=== PATIENT | female | born 1940 | race Caucasian/White ===

== ENCOUNTER 2019-06-05 15:42 | Observation (INO) | payer MEDICARE, SELFPAY ==
[2019-06-05] VITALS (10 sets, daily range): BP systolic 120–143; BP diastolic 51–84; PULSE 76–101; RESP 24–38; TEMP 36.3–36.8; O2SAT 93–100; BMI 24.5
--- NOTE | ~2019-06-05 | XR_ITS ---
XR chest 1V portable 06/05/2019 16:08 Indication: Shortness of breath. COPD. Procedure: AP portable chest Comparison: Comparison to multiple prior studies sequentially, with oldest reviewed study dated 01/25. Findings: Cardiomegaly. There is emphysema. No focal air space disease, pulmonary edema, pleural effu bright or suspected pneumothorax. There are degenerative changes of the shoulders. No acute osseous abn ormality. Impression: 1: No acute cardiopulmonary disease. Reviewed, dictated and finalized at location A. Impression: 1: No acute cardiopulmonary disease.
--- NOTE | 2019-06-05 15:57 | ECG_ITS ---
Measurements Intervals [place] Rate: 80 P: 72 TX: 138 QRS: 97 QRSD: 85 T: 65 QT: 357 QTc: 413 Interpretive Statements SINUS RHYTHM VENTRICULAR PREMATURE COMPLEXES POSSIBLE LEFT ATRIAL ENLARGEMENT BASELINE ARTIFACT- II, III, AVL, AVF, V3-V6 BORDERLINE ECG Electronically Signed On 06-06-2019 8:21:20 CDT by Benson Diaz D.O.
[2019-06-05 16:17] LABS: Basophils Absolute Auto 0.02 K/mm3 (0.00-0.10); Basophils Percent Auto 0.3 % (0.0-1.0); Eosinophils Absolute Auto 0.12 K/mm3 (0.02-0.50); Eosinophils Percent Auto 1.6 % (1.0-6.0); Hematocrit 31.4 % (35.0-42.0); Hemoglobin 9.6 g/dL (11.7-13.8); Immature Granulocyte Absolute 0.02 K/mm3 (0.00-0.00); Immature Granulocyte Percent A 0.3 % (0.0-0.0); Lymphocytes Absolute Auto 0.85 K/mm3 (1.10-4.50); Lymphocytes Percent Auto 11.3 % (18.0-42.0); Mean Corpuscular HGB Conc 30.6 g/dL (32.0-36.0); Mean Corpuscular Hemoglobin 28.7 pg (27.0-31.0); Mean Corpuscular Volume 93.7 fL (78.0-102.0); Mean Platelet Volume 10.2 fl (9.2-11.8); Monocytes Absolute Auto 0.66 K/mm3 (0.10-0.90); Monocytes Percent Auto 8.8 % (2.0-11.0); Neutrophils Absolute Auto 5.8 K/mm3 (1.7-7.2); Neutrophils Percent Auto 77.7 % (50.0-70.0); Platelet Count Result 208 K/mm3 (150-420); Red Blood Count 3.35 M/mm3 (4.20-5.40); Red Cell Distribution Width 14.7 % (11.6-14.4); White Blood Count 7.5 K/mm3 (4.8-10.8)
[2019-06-05 16:29] LABS: Anion Gap 6.2 mmol/L (7-16); Blood Urea Nitrogen 16 mg/dL (7-18); Calcium 9.1 mg/dL (8.5-10.1); Carbon Dioxide 36 mmol/L (21-32); Chloride 102 mmol/L (98-108); Estimated Glomerular Filt Rate > 60; Glucose 101 mg/dL (70-99); Osmolality Calculated 291 mOsm/kg (285-295); Potassium 4.2 mmol/L (3.5-5.1); Sodium 140 mmol/L (136-145)
[2019-06-05 16:38] LABS: Influenza Control Valid (Valid)
[2019-06-05] MEDS: predniSONE 20 MG TABLET 60 MG PO (17:19)
[2019-06-05] MEDS: IPRATROPIUM 0.5 MG/ALBUTEROL SULFATE 2.5 MG AMPUL.NEB 3 ML INHALATION ×2 (17:21→19:30)
[2019-06-05 19:34] LABS: Base Excess ABG 5.8 mmol/L (0-2); HCO3 ABG 31.9 mmol/L (23-29); Oxygen Content ABG 14.9 %vol (16.0-22.0); Oxygen Saturation ABG 99.4 % (95-97); Oxyhemoglobin 95.8 % (94-100); PCO2 ABG 53.9 mmHg (35-45); PO2 ABG 202.9 mmHg (75-85); Total Hemoglobin 10.7 g/dL; pH ABG 7.39 (7.35-7.45)
[2019-06-05 19:36] LABS: Device NASAL CANNULA; Modified Allen's Test Pass; Site Drawn LEFT BRACHIAL
--- NOTE | 2019-06-05 19:43 | ED.SOB ---
HPI - SOB/Dyspnea General Chief Complaint: Shortness of Breath/Dyspnea Stated Complaint: sent from doctors/low oxygen Source: other (Dr. Genao) Mode of arrival: wheelchair Limitations: no limitations History of Present Illness HPI Narrative: Dr. Genao phoned from his office, signing off patient who arrived in his office this afternoon with SOB, tachypnea and hypoxemia. Pt states 4 days ago she developed rhinorrhea and worsening of her dyspnea (especially with exertion) which has been progressively worsening. She has more intense coughing but it remains unproductive. She's had nausea since yesterday. There is some lower extremity swelling which is static. No recent fever or chills. She is on 3 liters of 02 continuously at home. There is a long hose allowing her to go everywhere in her house with 02. Discharged from [facility] 03/29/2019 with uncompensated CHF* and exacerbation of COPD. She continues to smoke several cigarettes/day. * (ECHo on 02/01/2019 showed LV diastolic fxn grade 1 diastolic dysfxn, moderate mitral calcification, moderate to severe pulmonary HTN with PA pressure 60 mmHG) Exacerbating factors: exertion Relieving factors: oxygen, rest and bronchodilators Related Data Allergies Allergy/AdvReac Type Severity Reaction Status Date / Time No Known Allergies Allergy Verified 06/05/19 11:06 Review of Systems Constitutional: Constitutional: Reports fatigue Eyes: Eyes: Reports no additional eye complaints ENT: Reports system reviewed and no additional complaints, except as documented Cardiovascular: Cardiovascular: Denies chest pain Respiratory: Respiratory: Reports no additional respiratory complaints Gastrointestinal: Gastrointestinal: Reports no additional gastrointestinal complaints Genitourinary: Genitourinary: Denies dysuria Musculoskeletal: Musculoskeletal: Reports no additional musculoskeletal complaints Integumentary/Breasts: Skin/Breast: Reports system reviewed and no additional complaints, except as docu Neurologic: Denies focal weakness Comments: lightheadedness for several months Psychiatric: Comments: Endocrine: Endocrine: Reports fatigue Hematologic/Lymphatic: Hematologic/Lymphatic: Reports no additional hematologic/lymphatic complaints Allergic/Immunologic: Allergic/Immunologic: Denies throat swelling PMFSH Past Medical History Medical History Abdominal pain in female patient (~02/28/19) Aortic stenosis Cardiomegaly Chronic GERD Community acquired pneumonia COPD (chronic obstructive pulmonary disease) Dilatation of pulmonic artery Elevated troponin HTN (hypertension) Left groin pain (~02/28/19) Medical non-compliance Moderate to severe pulmonary hypertension (~2018) Nicotine dependence Requires supplemental oxygen Shortness of breath Smoker Spondylosis of thoracolumbar spine TMJ (temporomandibular joint disorder) Trichomonal infection (~2018) Urogenital infection by trichomonas vaginalis (~02/08/19) Surgical History Surgical History H/O tubal ligation History of appendectomy History of tonsillectomy Hx of cholecystectomy Social History Social History Social History: Signed a DNR. Does not want advanced interventions done. Lives at home alone. No family support or assistance. Landlord helps her with rides. No cigarettes for over a week. Smoking packs per day: 0.5 Smoking cigarettes per day: 10.0 Years smoked: 55 Smoking pack-years: 27.50 Smoking status: Current every day smoker Tobacco type: cigarettes Second hand tobacco smoke exposure: Yes Alcohol intake: never Substance use: never Substance use type: does not use Gender identity (if verbalized by the patient): Female Spiritual care concerns: No Agree to blood products: Yes Exam Const: General: No confusion Nutri
[2019-06-05 19:54] LABS: Lactic Acid 1.3 mmol/L (0.4-2.0)
[2019-06-05 20:29] LABS: BNP 87.1 pg/mL (0-100)
[2019-06-05] MEDS: SALMET XINAFT/FLUTIC PROPIN 250 MCG/50 MCG INH CAP 1 PUFF INHALATION (21:14)
[2019-06-05] MEDS: SODIUM CHLORIDE 0.9% IV 1,000 ML 120 ML IV CONT (21:15)
--- NOTE | 2019-06-05 21:54 | ADMGEN ---
This patient, Paulette Mora, was admitted to 2nd Floor Room 209-1. Patient/family oriented to hospital policies and general routines including ID bracelet, bed and alarms, visiting hours, pain management, procedures, bathroom and other care routines, personal items, smoking policy, room service/diet, and visiting hours. Valuables list has been completed. Information on how to activate the Rapid Response Team has been discussed. Patient/Family are encouraged to report perceived risks to care and to ask questions if they do not understand what they are told or what they should do.
--- NOTE | 2019-06-05 21:58 | PC.NURSE ---
pt reminded not to get up without assist since she is on 02 and getting cont. fluids, commode placed near bedside, pt is sob upon repositioning herself in bed, 02 at home setting of 3L
--- NOTE | 2019-06-05 22:36 | PC.NURSE ---
pt makes multiple complaints that she can't breathe because there is no oxygen coming out of her tubing, tubing checked and is operational, 02 levels checked and pt is at 93%, offered breathing treatment which pt refuses, offered to have dr allan come speak with her, pt refuses this also and states i hope i here ,
[2019-06-06 00:12] VITALS: BP 114/68; PULSE 77; RESP 22; TEMP 37; O2SAT 96
[2019-06-06] MEDS: IPRATROPIUM 0.5 MG/ALBUTEROL SULFATE 2.5 MG AMPUL.NEB 3 ML INHALATION ×2 (02:25→05:35)
[2019-06-06 04:17] VITALS: BP 140/68; PULSE 78; RESP 22; TEMP 36.7; O2SAT 93
[2019-06-06 05:37] VITALS: PULSE 84; RESP 20
[2019-06-06 05:47] VITALS: PULSE 88; RESP 20
[2019-06-06] MEDS: LEVOTHYROXINE SODIUM 25 MCG TABLET PO (05:54)
[2019-06-06] MEDS: SODIUM CHLORIDE 0.9% IV 1,000 ML 120 ML IV CONT (05:54)
[2019-06-06] MEDS: methylPREDNISolone SOD SUCC 125 MG VIAL 60 MG IV PUSH (05:54)
[2019-06-06 08:00] VITALS: BP 145/66; PULSE 86; RESP 22; TEMP 36.8; O2SAT 95
[2019-06-06] MEDS: ENOXAPARIN 40 MG/0.4 ML SYRINGE SUB-Q (09:22)
[2019-06-06] MEDS: POTASSIUM CHLORIDE 10 MEQ TABLET 20 MEQ PO (09:23)
[2019-06-06] MEDS: FUROSEMIDE 40 MG TABLET PO (09:23)
[2019-06-06] MEDS: SALMET XINAFT/FLUTIC PROPIN 250 MCG/50 MCG INH CAP 1 PUFF INHALATION (09:23)
[2019-06-06] MEDS: PANTOPRAZOLE 40 MG TABLET PO (09:23)
[2019-06-06 10:03] LABS: Hematocrit 32.3 % (35.0-42.0); Mean Corpuscular Hemoglobin 28.7 pg (27.0-31.0); Mean Corpuscular Volume 92.6 fL (78.0-102.0); Mean Platelet Volume 10.1 fl (9.2-11.8); Platelet Count Result 217 K/mm3 (150-420); Red Blood Count 3.49 M/mm3 (4.20-5.40); White Blood Count 5.8 K/mm3 (4.8-10.8)
[2019-06-06 10:12] LABS: Anion Gap 10.9 mmol/L (7-16); Blood Urea Nitrogen 11 mg/dL (7-18); Calcium 8.9 mg/dL (8.5-10.1); Carbon Dioxide 30 mmol/L (21-32); Chloride 101 mmol/L (98-108); Estimated CRCL calculation 38 ml/min; Estimated Glomerular Filt Rate > 60; Glucose 234 mg/dL (70-99); Osmolality Calculated 293 mOsm/kg (285-295); Potassium 3.9 mmol/L (3.5-5.1); Sodium 138 mmol/L (136-145)
--- NOTE | 2019-06-06 14:14 | PM.SD ---
Same Day Admit/Disch: HPI History of Present Illness Chief complaint: sent from doctors/low oxygen Narrative: Paulette Mora is a 79 year old female that was sent from her doctor's offfice , Dr. Fair, to our ED yesterday. According the patient for the last couple days she had experienced shortness of breath that worsened on exertion. She arrived to her doctor's office with shortness of breath, tachypnea and hypoxia. She was admitted into this hospital, from her doctor's office for COPD exacerbation. She has a past medical history aortic stenosis, cardiomegaly, chronic GERD, CAP, COPD, elevated troponin, hypertension, nicotine dependent, requires supplemental oxygen, shortness of breath, smoker, and COPD. according to the patient for the last 4 days she had experienced short of breath that increased with exertion . she was attempting to smoke her cigarettes and had to put it out and relight it 4 times. According to patient she occasionally experience these episodes due to her COPD. Vital signs 145/66, 36.8%, 86, 22, 95% on 2 L nasal cannula. while patient was in the ED she was given breathing treatments with Levaquin and Solu-Medrol her chest x-ray was unremarkable her EKG was sinus rhythm blood cultures are pending. Patient is anxious to discharge home today. I have encountered this patient in the past she appears to be at baseline. Patient was educated on smoking sensation. According to patient she is old and she is going to from something. She will not stop smoking. Warned her of the dangers of smoking with oxygen, patient understood. She will discharge today with Levaquin, prednisone, and anti-Decongestion. patient will follow-up with PCP. Patient able to tolerate all meals , slept well and ambulate at baseline. Patient denies CP, palpitation, extremity numbness, lightheadness, dizziness, constipation, diarrhea, or chills or fever. Patient agree that they are ready for discharge and discharge plan. [facility] Past Medical History Medical History Abdominal pain in female patient (~02/28/19) Aortic stenosis Cardiomegaly Chronic GERD Community acquired pneumonia COPD (chronic obstructive pulmonary disease) Dilatation of pulmonic artery Elevated troponin HTN (hypertension) Left groin pain (~02/28/19) Medical non-compliance Moderate to severe pulmonary hypertension (~2018) Nicotine dependence Requires supplemental oxygen Shortness of breath Smoker Spondylosis of thoracolumbar spine TMJ (temporomandibular joint disorder) Trichomonal infection (~2018) Urogenital infection by trichomonas vaginalis (~02/08/19) Surgical History Surgical History H/O tubal ligation History of appendectomy History of tonsillectomy Hx of cholecystectomy Social History Social History Social History: Signed a DNR. Does not want advanced interventions done. Lives at home alone. No family support or assistance. Landlord helps her with rides. No cigarettes for over a week. Smoking packs per day: 0.5 Smoking cigarettes per day: 10.0 Years smoked: 55 Smoking pack-years: 27.50 Smoking status: Current every day smoker Tobacco type: cigarettes Second hand tobacco smoke exposure: Yes Alcohol intake: never Substance use: never Substance use type: does not use Gender identity (if verbalized by the patient): Female Spiritual care concerns: No Agree to blood products: Yes Same Day Admit/Disch: Med Pre-admit Medications Home Medications Medication Instructions Recorded Confirmed Type acetaminophen 1,000 mg PO Q6H PRN #30 cap 03/03/19 06/05/19 Rx fluticasone 250 mcg-salmeterol 50 1 inh INHALATION Q12H #60 each 03/29/19 06/05/19 Rx mcg/dose blistr powdr for inhalation ibuprofen 400 mg PO Q6H PRN #60 tablet 03/29/19 06/05/19 Rx ipratropium 0.5 mg-albu
== END 2019-06-06 12:45 | disposition home or self-care (01) ==
LOC: CHSED 15:44 → CHS2ND 20:07
PROVIDERS: Nurse Practitioner; Admitting Provider Family Medicine; Emergency Provider Family Medicine; PCP Family Medicine; Visit Provider Family Medicine
DX: J44.1 Chronic obstructive pulmonary disease with (acute) exacerbation (principal); I50.9 Heart failure, unspecified; I35.0 Nonrheumatic aortic (valve) stenosis; K21.9 Gastro-esophageal reflux disease without esophagitis; I11.0 Hypertensive heart disease with heart failure; I27.20 Pulmonary hypertension, unspecified; M47.814 Spondylosis without myelopathy or radiculopathy, thoracic region; F17.200 Nicotine dependence, unspecified, uncomplicated; Z99.81 Dependence on supplemental oxygen
CPT/HCPCS: 36415; 36600; 71045; 80048; 82805; 83605; 83880; 85025; 85027; 87040; 87804; 93005; 94640; 96361; 96365; 96372; 96375; 99285; A9270; G0378; J1650; J1956; J2930; J7030; J7512

== ENCOUNTER 2019-07-06 04:49 | Observation (INO) | payer MEDICARE, SELFPAY ==
[2019-07-06] VITALS (14 sets, daily range): BP systolic 113–143; BP diastolic 53–88; PULSE 66–80; RESP 16–20; TEMP 36.6–37.4; O2SAT 93–100; BMI 21.5
--- NOTE | ~2019-07-06 | XR_ITS ---
EXAMINATION: XR chest 1V portable DATE: 07/06/2019 05:11 INDICATION: Shortness of breath. TECHNIQUE: A single frontal view of the chest was obtained. COMPARISON: Chest single view 06/05/2019, CT abdomen and pelvis 03/01/2019 FINDINGS: There are Monae B-lines, consistent with mild pulmonary edema. No pleural effusion or pneu mothorax. Cardiomegaly is noted. IMPRESSION: 1. Mild pulmonary edema. 2. Cardiomegaly. Reviewed, dictated and finalized at location A.
--- NOTE | 2019-07-06 04:52 | ECG_ITS ---
Measurements Intervals [place] Rate: 77 P: 78 [place]: 143 QRS: 87 QRSD: 85 T: 75 QT: 413 QTc: 468 Interpretive Statements SINUS RHYTHM VENTRICULAR BIGEMINY AND VENTRICULAR PREMATURE COMPLEX CANNOT RULE OUT SEPTAL INFARCT, AGE INDETERMINATE BASELINE ARTIFACT- V4-V6 ABNORMAL ECG Electronically Signed On 07-06-2019 7:55:18 CDT by Benson Diaz D.O.
--- NOTE | 2019-07-06 04:55 | ED.SOB ---
HPI - SOB/Dyspnea General Chief Complaint: Unspecified Stated Complaint: shortness of breath Time Seen by Provider: 07/06/19 04:55 Source: patient Mode of arrival: EMS Limitations: no limitations History of Present Illness HPI Narrative: 79-year-old woman history of COPD, pulmonary hypertension, smoking and recent admission for community-acquired pneumonia brought in today by EMS for progressively worse shortness of breath over the last 3 days. Patient states that she has had rhinorrhea since her last admission on 06/05/19 but denies any fever, body aches, headache, chest pain, lightheadedness or syncope, or sick exposures. Her most recent neb was just prior to EMS arrival. MD elicited complaint: shortness of breath Pertinent past history: COPD Onset (ago): day(s) (3) Context: recent illness Timing: constant and progressively worsening Severity: severe Exacerbating factors: lying flat and exertion Relieving factors: nothing Known history of: COPD Treatment prior to arrival: oxygen and bronchodilator Related Data Home oxygen amount: 3 liters Allergies Allergy/AdvReac Type Severity Reaction Status Date / Time No Known Allergies Allergy Verified 06/12/19 09:03 Review of Systems Constitutional: Constitutional: Denies chills, Denies fever(s) and Denies weakness Eyes: Eyes: Denies change in vision and Denies photophobia ENT: Denies dysphagia, Denies nasal congestion and Denies sore throat Cardiovascular: Cardiovascular: Denies chest pain and Denies radiating jaw, neck or arm pain Respiratory: Respiratory: Denies cough, Denies dyspnea and Denies wheezing Gastrointestinal: Gastrointestinal: Denies abdominal pain, Denies diarrhea, Denies nausea and Denies vomiting Genitourinary: Genitourinary: Denies nocturia and Denies dysuria Musculoskeletal: Musculoskeletal: Denies arthralgias and Denies joint swelling Integumentary/Breasts: Skin/Breast: Denies pruritus, Denies erythema and Denies rash Neurologic: Denies vertigo, Denies dizziness, Denies syncope, Denies headache(s) and Denies focal weakness Psychiatric: Psychiatric: Denies anxiety and Denies depression Endocrine: Endocrine: Denies polydipsia and Denies polyuria Hematologic/Lymphatic: Hematologic/Lymphatic: Denies easy bleeding and Denies easy bruising Allergic/Immunologic: Allergic/Immunologic: Denies lip swelling and Denies wheezing PMFSH Past Medical History Medical History Abdominal pain in female patient (~02/28/19) Aortic stenosis Cardiomegaly Chronic GERD Community acquired pneumonia COPD (chronic obstructive pulmonary disease) Dilatation of pulmonic artery Elevated troponin HTN (hypertension) Left groin pain (~02/28/19) Medical non-compliance Moderate to severe pulmonary hypertension (~2018) Nicotine dependence Requires supplemental oxygen Shortness of breath Smoker Spondylosis of thoracolumbar spine TMJ (temporomandibular joint disorder) Trichomonal infection (~2018) Urogenital infection by trichomonas vaginalis (~02/08/19) Surgical History Surgical History H/O tubal ligation History of appendectomy History of tonsillectomy Hx of cholecystectomy Social History Social History Social History: Signed a DNR. Does not want advanced interventions done. Lives at home alone. No family support or assistance. Landlord helps her with rides. No cigarettes for over a week. Smoking packs per day: 0.5 Smoking cigarettes per day: 10.0 Years smoked: 55 Smoking pack-years: 27.50 Smoking status: Current every day smoker Tobacco type: cigarettes Second hand tobacco smoke exposure: Yes Alcohol intake: never Substance use: never Substance use type: does not use Gender identity (if verbalized by the patient): Female Spiritual care concerns: No Agree to blood products
--- NOTE | 2019-07-06 05:05 | PC.NURSE ---
portable CXR done
[2019-07-06] MEDS: SODIUM CHLORIDE 0.9% 3 ML NEB FOR INHALATION (05:10)
[2019-07-06] MEDS: IPRATROPIUM 0.5 MG/ALBUTEROL SULFATE 2.5 MG AMPUL.NEB 3 ML INHALATION (05:10)
[2019-07-06 05:18] LABS: Basophils Absolute Auto 0.01 K/mm3 (0.00-0.10); Basophils Percent Auto 0.2 % (0.0-1.0); Eosinophils Percent Auto 3.9 % (1.0-6.0); Hematocrit 28.9 % (35.0-42.0); Hemoglobin 8.6 g/dL (11.7-13.8); Immature Granulocyte Absolute 0.01 K/mm3 (0.00-0.00); Immature Granulocyte Percent A 0.2 % (0.0-0.0); Lymphocytes Absolute Auto 1.06 K/mm3 (1.10-4.50); Lymphocytes Percent Auto 20.7 % (18.0-42.0); Mean Corpuscular HGB Conc 29.8 g/dL (32.0-36.0); Mean Corpuscular Hemoglobin 28.2 pg (27.0-31.0); Mean Corpuscular Volume 94.8 fL (78.0-102.0); Mean Platelet Volume 9.9 fl (9.2-11.8); Monocytes Absolute Auto 0.52 K/mm3 (0.10-0.90); Monocytes Percent Auto 10.2 % (2.0-11.0); Neutrophils Absolute Auto 3.3 K/mm3 (1.7-7.2); Neutrophils Percent Auto 64.8 % (50.0-70.0); Platelet Count Result 172 K/mm3 (150-420); Red Blood Count 3.05 M/mm3 (4.20-5.40); Red Cell Distribution Width 16.5 % (11.6-14.4); White Blood Count 5.1 K/mm3 (4.8-10.8)
[2019-07-06 05:21] LABS: Oxygen Content ABG 13.9 %vol (16.0-22.0); Oxygen Saturation ABG 99.7 % (95-97); Oxyhemoglobin 96.5 % (94-100); PO2 ABG 285.3 mmHg (75-85); Total Hemoglobin 9.7 g/dL; pH ABG 7.31 (7.35-7.45)
[2019-07-06 05:38] LABS: Alanine Aminotransferase 15 U/L (14-59); Albumin Level 3.3 g/dL (3.4-5.0); Alkaline Phosphatase 75 U/L (46-116); Anion Gap 7.4 mmol/L (7-16); Aspartate Amino Transferase 16 U/L (15-37); Bilirubin,Total 0.1 mg/dL (0.00-1.00); Blood Urea Nitrogen 19 mg/dL (7-18); Calcium 8.5 mg/dL (8.5-10.1); Carbon Dioxide 37 mmol/L (21-32); Chloride 103 mmol/L (98-108); Estimated CRCL calculation 61 ml/min; Estimated Glomerular Filt Rate > 60; Glucose 110 mg/dL (70-99); Osmolality Calculated 299 mOsm/kg (285-295); Potassium 4.4 mmol/L (3.5-5.1); Sodium 143 mmol/L (136-145); Total Protein 6.3 g/dL (6.4-8.2); Troponin I 0.03 ng/mL (0.00-0.056)
[2019-07-06 05:41] LABS: BNP 59.8 pg/mL (0-100)
[2019-07-06 05:58] LABS: D Dimer 0.44 mg/L (0.19-0.50); Prothrombin Time 9.9 Seconds (9.64-11.0)
[2019-07-06 05:59] LABS: Partial Thromboplastin Time 24.6 SEC (22.3-31.6)
[2019-07-06 06:01] LABS: Modified Allen's Test Pass; PCO2 ABG 73.3 mmHg (35-45); Site Drawn RIGHT BRACHIAL
[2019-07-06 06:02] LABS: Device ROOM AIR
[2019-07-06 07:02] LABS: Influenza Control Valid (Valid)
--- NOTE | 2019-07-06 07:39 | PC.NURSE ---
COVID 19 ordered, even though now s/s.
--- NOTE | 2019-07-06 08:02 | PCRCNOTE ---
Oxygen initated per High Flow Nasal Canula 40/40 @ 0620. Pt complained that the air was to hot so temp was turned down to 31 degrees Celsius. Pt SPO2 100%
[2019-07-06] MEDS: methylPREDNISolone SOD SUCC 40 MG VIAL IV PUSH ×2 (08:05→17:42)
--- NOTE | 2019-07-06 08:13 | PC.NURSE ---
patient refuses to use bedside commode, explained on isolation. Cont to refuse, states I am not an invilid.
--- NOTE | 2019-07-06 09:17 | PC.NURSE ---
Recent admit for pneumonia, doing ok till about 4 days ago and got more SOB progressively, to ER and received neb and steroids and feeling better, did have hi flow oxygen in place, for admit to floor changed back to home oxygen at 3L NC and now feeling better, refuses hi flow at this time, eating breakfast, oriented to room no pain noted, no edema noted, some SALCEDO noted, call ight in reach and side rails up for safety
--- NOTE | 2019-07-06 09:30 | PC.NURSE ---
Is back on home oxygen at 3L NC, denies need for more oxygen at this time, sitting on edge of bed,
[2019-07-06] MEDS: POTASSIUM CHLORIDE 10 MEQ TABLET 20 MEQ PO (10:00)
[2019-07-06] MEDS: FUROSEMIDE 40 MG TABLET PO (10:00)
[2019-07-06] MEDS: SALMET XINAFT/FLUTIC PROPIN 250 MCG/50 MCG INH CAP 1 PUFF INHALATION ×2 (10:00→19:28)
[2019-07-06] MEDS: PANTOPRAZOLE 40 MG TABLET PO (10:01)
[2019-07-06] MEDS: ENOXAPARIN 30 MG/0.3 ML SYRINGE SUB-Q (10:01)
[2019-07-06 10:17] LABS: Add Urine Microscopic? NO; Appearance Urine Clear (Clear); Bilirubin Urine Negative (Negative); Blood Urine Negative (Negative); Color Urine Yellow (Yellow); Glucose Urine UA Negative (Negative); Ketones Urine Negative (Negative); Leukocyte Esterase Ur Negative LEU/UL (Negative); Nitrate Urine Negative (Negative); Protein Urine Negative (Negative); Specific Grav Ur 1.025 (1.010-1.020); Urobilinogen Urine 0.2 mg/dL (0.2-1.0)
--- NOTE | 2019-07-06 10:30 | PC.NURSE ---
Sitting on edge of bed, denies needs, moreira noted but states feels better now than when admit to ER
[2019-07-06] MEDS: ALBUTEROL SULFATE (*SP) INHALER 4 PUFF INHALATION ×3 (11:15→19:32)
--- NOTE | 2019-07-06 11:28 | PM.IMHP ---
H&P: HPI History of Present Illness Chief complaint: shortness of breath Narrative: Paulette Mora is a 79 year old female that presented to the ED today with complaints of shortness of breath that started last night. she has a past medical history aortic stenosis, cardiomegaly, chronic GERD, community-acquired pneumonia, COPD, elevated troponins, dilation of pulmonary artery, hypertension, elevated troponin, left groin pain, abdominal pain in female patient, medical noncompliance, moderate to severe pulmonary hypertension, nicotine dependence, require supplementary oxygen, and smoker. Patient is a frequent Flyer she has been admitted twice this year on 04/08/2019 and 06/06/2019 for COPD exacerbation. She is being admitted today for COPD exacerbation. patient noted that last night she does develop shortness of breath and attempted to use her nebulizers and and inhaler with no improvement.while in the ER patient was given breathing treatments chest x-ray did indicate mild pulmonary edema, EKG normal sinus rhythm with PVCs. Her blood gases indicated chronic compensated primary respiratory acidosis. her white count was within normal limits, her influenza was negative her COVID-19 is pending. patient is currently on droplet isolation until results to COVID-19 are returned. vital signs 133/57, 72, 16, 36.7 and 98% on high-flow nasal cannula. high-flow has been removed from patient she is now on 3 L nasal cannula satting 99% she does not appear to be in any respiratory distress. patient admits that her condition has improved since she has had breathing treatments along with steroids . patient was not started on antibiotics until she she could produce a UA sample. she has urinated we will now start her on Rocephin. Patient able to tolerate all meals ,and ambulate at baseline. Patient denies SOB, CP, palpitation, extremity numbness, lightheadness, dizziness, constipation, diarrhea, chills or fever. Review of Systems Review of Systems: Narrative: Constitutional: Constitutional: Reports no additional constitutional complaints Cardiovascular: Cardiovascular: Reports no additional cardiovascular complaints, Denies rapid heart rate, Denies edema, Denies leg edema, Reports dyspnea on exertion (has iimproved) and Reports orthopnea Respiratory: Respiratory: Reports cough (Chronic) and Reports dyspnea ( improved) Gastrointestinal: Gastrointestinal: Reports no additional gastrointestinal complaints, Denies dyspepsia, Denies heartburn, Denies diarrhea, Denies nausea and Denies vomiting Genitourinary: Genitourinary: Reports no additional female genitourinary complaints, Denies dysuria and Denies flank pain Musculoskeletal: Musculoskeletal: Reports no additional musculoskeletal complaints Integumentary/Breasts: Skin/Breast: Reports system reviewed and no additional complaints, except as docu Neurologic: Reports system reviewed and no additional complaints, except as documented, Denies abnormal gait, Denies vertigo, Denies dizziness and Denies syncope Psychiatric: Psychiatric: Reports no additional psychiatric complaints, Denies confusion and Denies paranoia Endocrine: Endocrine: Reports no additional endocrine complaints and Denies fatigue PMFSH Past Medical History Medical History Abdominal pain in female patient (~02/28/19) Aortic stenosis Cardiomegaly Chronic GERD Community acquired pneumonia COPD (chronic obstructive pulmonary disease) Dilatation of pulmonic artery Elevated troponin HTN (hypertension) Left groin pain (~02/28/19) Medical non-compliance Moderate to severe pulmonary hypertension (~2018) Nicotine dependence Requires supplemental oxygen Shortness of breath Smoker Spondylosis of thoracolumbar spine TMJ (temporomandibular joint disorder) Trichomonal infection (~2018) Urogenital infection by trichomonas vaginalis (~02/08/19) Surgical History Surgical History (Reviewed
--- NOTE | 2019-07-06 11:30 | PC.NURSE ---
Resting on left side in bed, oxygen on at 3 L NC per home dose, no cough at this time
--- NOTE | 2019-07-06 12:29 | PC.NURSE ---
Ate well for lunch, no change in breathing assessment, only dyspnea on exertion, removes oxygen to get up to void then re applied per patient
[2019-07-06] MEDS: BENZONATATE 100 MG CAPSULE 200 MG PO ×2 (13:12→17:42)
--- NOTE | 2019-07-06 13:21 | PC.NURSE ---
Increased void due to lasix and making her more sob, states will refuse this med tomorrow
--- NOTE | 2019-07-06 14:08 | PC.NURSE ---
home oxygen on at 3L NC, no acute distress, occassional audible wheeze after activity, resolves after sitting, able to ambulate to bathroom to void
--- NOTE | 2019-07-06 15:00 | PC.NURSE ---
laying in bed, no distress at this time, no cough noted, tlelemtry SR, side rails up for safety and using call light appropriately, taking po fluids well
--- NOTE | 2019-07-06 16:00 | PC.NURSE ---
home dose of oxygen on at 3L NC
--- NOTE | 2019-07-06 17:00 | PC.NURSE ---
Home dose oxygen on at 3L NC
--- NOTE | 2019-07-06 18:11 | PC.NURSE ---
Sitting on edge of bed, denies needs, dyspnea when up, recovers after sitting , able to ambulate to bathroom and re applied oxygen when returned,
--- NOTE | 2019-07-06 19:05 | PC.NURSE ---
Patient lying in bed watching tv. Respirations even and unlabored on O2 @ 3 lpm/nc. Denies pain/complaints/needs @ this time. No distress noted. Call light in reach.
--- NOTE | 2019-07-06 20:45 | PC.NURSE ---
Patient took HS meds without difficulty. Respirations even and unlabored on O2 @ 3 lpm/nc. Patient reports getting SOB when she walks to the bathroom. Offered to assist patient with portable O2 tank when going to the bathroom and she declined, saying it's fine how she's doing it, which is taking O2 off when ambulating to/from bathroom. Patient denies any other pain/complaints/needs @ this time. No distress noted. Call light in reach.
--- NOTE | 2019-07-06 21:30 | PC.NURSE ---
Patient appears to be sleeping by the rise and fall of her chest. Respirations even and unlabored on O2 @ 3 lpm/nc. No distress noted. Call light in reach.
[2019-07-07] VITALS: BP 137/51; PULSE 72; RESP 18; TEMP 37.1; O2SAT 94
--- NOTE | 2019-07-07 | PC.NURSE ---
Patient awakened easily but remained sleepy for VS. Respirations even and unlabored on O2 @ 3 lpm/nc. Denies pain/complaints/needs @ this time. No distress noted. Call light in reach.
[2019-07-07 02:00] VITALS: PULSE 72
--- NOTE | 2019-07-07 02:05 | PC.NURSE ---
Patient appears to be sleeping by the rise and fall of her chest. O2 continues @ 3 lpm/nc. No distress noted. Call light in reach.
--- NOTE | 2019-07-07 03:00 | PC.NURSE ---
Patient lying in bed awake, saying she just woke up. Respirations even and unlabored with O2 @ 3 lpm/nc. Denies pain/complaints/needs @ this time. No distress noted. Call light in reach.
--- NOTE | 2019-07-07 03:35 | PC.NURSE ---
Patient complaining that her O2 is not working and that she can't breathe. Respirations are even and unlabored with O2 going @ 3 lpm /nc. Nurse checked and O2 is working correctly and SpO2 is 98%. O2 increased to 3.5 lpm/nc. Patient also complains of a headache and requested/given PRN Tramadol. No distress noted. Call light in reach.
[2019-07-07] MEDS: ALBUTEROL SULFATE (*SP) INHALER 4 PUFF INHALATION ×2 (04:04→10:34)
--- NOTE | 2019-07-07 04:33 | PC.NURSE ---
Patient continues to c/o SOB and is asking for something to help her breathe. Charge nurse spoke to Dr Du and he ordered for her to have her 0630 Albuterol inhaler now. Inhaler given. Patient says her headache is now rated @ 4 on 0-10 scale. Respirations remain even and unlabored on O2 @ 3.5 lpm/nc. No distress noted. Call light in reach.
--- NOTE | 2019-07-07 04:35 | PC.NURSE ---
[id number] Dr. Du notified of pt's c/o shortness of breath and her request for something that will help her breathe easier. Dr. Du said we could advance pt's albuterol dose and give it now instead of at 0630.
--- NOTE | 2019-07-07 05:10 | PC.NURSE ---
Patient appears to be sleeping by the rise and fall of her chest. O2 continues @ 3.5 lpm/nc. Respirations even and unlabored. No distress noted. Call light in reach.
[2019-07-07 06:00] VITALS: PULSE 80
[2019-07-07] MEDS: methylPREDNISolone SOD SUCC 40 MG VIAL IV PUSH (06:02)
[2019-07-07] MEDS: LEVOTHYROXINE SODIUM 25 MCG TABLET PO (06:02)
--- NOTE | 2019-07-07 06:15 | PC.NURSE ---
Patient awakened easily when nurse spoke her name. Patient said she just now got to sleep. Patient took AM med without difficulty. Solu-medrol IVP given to site in left hand without difficulty. Site flushes with ease. Respirations even and unlabored with O2 on @ 3.5 lpm/nc. No distress noted. Call light in reach.
--- NOTE | 2019-07-07 07:35 | PC.NURSE ---
Resting in bed, no distress, oxygen on per home dose at 3L NC
[2019-07-07 07:38] VITALS: BP 128/57; PULSE 76; RESP 20; TEMP 37; O2SAT 99
[2019-07-07 08:08] LABS: Hematocrit 27.1 % (35.0-42.0); Hemoglobin 8.3 g/dL (11.7-13.8); Mean Corpuscular HGB Conc 30.6 g/dL (32.0-36.0); Mean Corpuscular Hemoglobin 28.4 pg (27.0-31.0); Mean Corpuscular Volume 92.8 fL (78.0-102.0); Mean Platelet Volume 10.4 fl (9.2-11.8); Platelet Count Result 159 K/mm3 (150-420); Red Blood Count 2.92 M/mm3 (4.20-5.40); Red Cell Distribution Width 16.7 % (11.6-14.4); White Blood Count 5.6 K/mm3 (4.8-10.8)
--- NOTE | 2019-07-07 08:24 | PC.NURSE ---
Sitting up on edge of bed eating breakfast, denies needs
[2019-07-07 08:25] LABS: Alanine Aminotransferase 13 U/L (14-59); Albumin Level 3.3 g/dL (3.4-5.0); Alkaline Phosphatase 65 U/L (46-116); Anion Gap 4.2 mmol/L (7-16); Aspartate Amino Transferase 16 U/L (15-37); Bilirubin,Total 0.2 mg/dL (0.00-1.00); Blood Urea Nitrogen 14 mg/dL (7-18); Calcium 8.6 mg/dL (8.5-10.1); Carbon Dioxide 38 mmol/L (21-32); Chloride 101 mmol/L (98-108); Estimated CRCL calculation 69 ml/min; Estimated Glomerular Filt Rate > 60; Glucose 111 mg/dL (70-99); Osmolality Calculated 289 mOsm/kg (285-295); Potassium 4.2 mmol/L (3.5-5.1); Sodium 139 mmol/L (136-145); Total Protein 6.3 g/dL (6.4-8.2)
[2019-07-07 08:29] LABS: BNP 169 pg/mL (0-100)
[2019-07-07] MEDS: SALMET XINAFT/FLUTIC PROPIN 250 MCG/50 MCG INH CAP 1 PUFF INHALATION (08:53)
[2019-07-07] MEDS: POTASSIUM CHLORIDE 10 MEQ TABLET 20 MEQ PO (08:54)
[2019-07-07] MEDS: BENZONATATE 100 MG CAPSULE 200 MG PO (08:58)
[2019-07-07] MEDS: predniSONE 20 MG TABLET 40 MG PO (09:56)
[2019-07-07 10:00] VITALS: PULSE 78
--- NOTE | 2019-07-07 10:11 | PM.DS ---
DS: Diagnosis Admitting Diagnosis Admitting Diagnosis: Chronic obstructive pulmonary disease with (acute) exacerbation Discharge Diagnosis (1) Acute exacerbation of chronic obstructive pulmonary disease: Code(s): J44.1 - Chronic obstructive pulmonary disease with (acute) exacerbation Status: Acute Assessment and Plan: has improved since the use of inhalers and steroids continue inhalers AT HOME PATIENT WILL DISCHARGE WITH MEDROL PACK will start DISCHARGED ON CEFDINIR continue supplementary oxygen AT HOMEted (2) Moderate to severe pulmonary hypertension: Onset Date: Code(s): I27.20 - Pulmonary hypertension, unspecified Status: Acute Assessment and Plan: stable patient currently not on any home medication will give medication if needed (3) Hypothyroidism: Code(s): E03.9 - Hypothyroidism, unspecified Status: Acute Assessment and Plan: continue home dose of Synthroid (4) Nicotine dependence: Code(s): F17.200 - Nicotine dependence, unspecified, uncomplicated Status: Acute Assessment and Plan: patient educated on smoking cessation (5) Requires supplemental oxygen: Code(s): Z99.81 - Dependence on supplemental oxygen Status: Acute Assessment and Plan: patient is educated on the importance supplementary oxygen (6) Congestive heart failure: Onset Date: ~2018 Code(s): I50.9 - Heart failure, unspecified Status: Acute Assessment and Plan: chest x-ray did indicate mouth pulmonary edema BnP within normal limits Ho Krishna 59.8 PATIENT REFUSED LASIX THIS A.M. PATIENT EDUCATED ON THE IMPORTANCE OF THE USE OF LASIX WITH HER CONGESTIVE HEART FAILURE (7) Dyspnea: Qualifiers: Dyspnea type: shortness of breath Qualified Code(s): R06.02 - Shortness of breath Code(s): R06.00 - Dyspnea, unspecified Status: Acute Assessment and Plan: RESOLVED secondary to COPD excerbation DS: Summary Hospital Course Hospital Course: ADMISSION NOTE FROM 07/06/2019 Paulette Mora is a 79 year old female that presented to the ED today with complaints of shortness of breath that started last night. she has a past medical history aortic stenosis, cardiomegaly, chronic GERD, community-acquired pneumonia, COPD, elevated troponins, dilation of pulmonary artery, hypertension, elevated troponin, left groin pain, abdominal pain in female patient, medical noncompliance, moderate to severe pulmonary hypertension, nicotine dependence, require supplementary oxygen, and smoker. Patient is a frequent Flyer she has been admitted twice this year on 04/08/2019 and 06/06/2019 for COPD exacerbation. She is being admitted today for COPD exacerbation. patient noted that last night she does develop shortness of breath and attempted to use her nebulizers and and inhaler with no improvement.while in the ER patient was given breathing treatments chest x-ray did indicate mild pulmonary edema, EKG normal sinus rhythm with PVCs. Her blood gases indicated chronic compensated primary respiratory acidosis. her white count was within normal limits, her influenza was negative her COVID-19 is pending. patient is currently on droplet isolation until results to COVID-19 are returned. vital signs 133/57, 72, 16, 36.7 and 98% on high-flow nasal cannula. high-flow has been removed from patient she is now on 3 L nasal cannula satting 99% she does not appear to be in any respiratory distress. patient admits that her condition has improved since she has had breathing treatments along with steroids . patient was not started on antibiotics until she she could produce a UA sample. she has urinated we will now start her on Rocephin. Patient able to tolerate all meals ,and ambulate at baseline. Patient denies SOB, CP, palpitation, extremity numbness, lightheadness, dizziness, constipation, diarrhea, chill
--- NOTE | 2019-07-07 11:20 | PC.NURSE ---
Discharge via wheel chair to home, instructions reviewed, no questions voiced, instructions home with patient, meds returned
--- NOTE | 2019-07-07 21:40 | PC.NURSE ---
Patient notifiied by phone that her COVID 19 results were negative.
--- NOTE | 2019-07-07 23:18 | PM.EVENT ---
Event Note Event Note Event Note: Patient states that her breathing is back to baseline. just prior to exam she had gotten herself up to the bathroom and felt winded going back to bed but was returning to baseline shortness of breath. She is on baseline oxygen. Patient states that she wants to go home. Alert and oriented to month and day. Decreased breath sounds throughout And goodman expiratory wheezing. No accessory muscle use or retractions. Regular rate rhythm without murmur rub or gallop. Distal pulses are full and symmetric in extremities are warm. Minimal peripheral edema. It is unclear whether patient will benefit from further hospitalization knowing that she will go home and smoke. Patient was cautioned that she is high risk for recurrence of her symptoms should return if her symptoms worsen. I have examined the patient reviewed the chart. I discussed the patient's care with Elbert Meeks APN and agree with her assessment and plan.
--- NOTE | 2019-07-23 15:29 | PC.NURSE ---
DISCHARGE FOLLOW UP CALL: Pt states she thinks she still has what she had when she was admitted. She has her follow up appointment tomorrow with PMD. Had all scripts filled and took as prescribed. States her admission was just wonderful and she is ready to move in here because she was cared for so well by the nurses and all staff. Also states the food was good. Discharge instructions were clear and she understood what she was supposed to do.
== END 2019-07-07 11:20 | disposition home or self-care (01) ==
LOC: CHSED 06:39 → CHS2ND 17:07 → CHSED 17:08 → CHS2ND 17:09
PROVIDERS: Emergency Medicine; Nurse Practitioner; Admitting Provider Emergency Medicine; Emergency Provider Emergency Medicine; Visit Provider Emergency Medicine
DX: J44.1 Chronic obstructive pulmonary disease with (acute) exacerbation (principal); E87.2 Acidosis; Z20.828 Contact with and (suspected) exposure to other viral communicable diseases; I11.0 Hypertensive heart disease with heart failure; I50.9 Heart failure, unspecified; I27.20 Pulmonary hypertension, unspecified; E03.9 Hypothyroidism, unspecified; I35.0 Nonrheumatic aortic (valve) stenosis; K21.9 Gastro-esophageal reflux disease without esophagitis; M47.816 Spondylosis without myelopathy or radiculopathy, lumbar region; M26.609 Unspecified temporomandibular joint disorder, unspecified side; Z99.81 Dependence on supplemental oxygen; F17.200 Nicotine dependence, unspecified, uncomplicated
CPT/HCPCS: 36415; 36600; 71045; 80053; 81003; 82805; 83880; 84484; 85025; 85027; 85380; 85610; 85730; 87040; 87086; 87088; 87804; 93005; 94640; 96365; 96372; 96374; 96375; 96376; 99285; A9270; G0378; J0696; J1650; J2920; J7512

== ENCOUNTER 2019-08-07 12:45 | Inpatient (IN) | payer MEDICARE, SELFPAY ==
[2019-08-07] VITALS (11 sets, daily range): BP systolic 90–152; BP diastolic 50–69; PULSE 86–110; RESP 18–36; TEMP 36.6–36.7; O2SAT 95–100
--- NOTE | ~2019-08-07 | XR_ITS ---
EXAMINATION: XR chest 2V DATE: 08/08/2019 09:42 INDICATION: Shortness of breath. TECHNIQUE: Frontal and lateral views of the chest were obtained on 3 radiographs. COMPARISON: Chest 2 views 08/07/2019, CT abdomen and pelvis 03/01/2019 FINDINGS: The chest demonstrates clear lungs without pneumonia, pleural effusion, or pneumothorax. Th e heart size is normal. IMPRESSION: 1. No acute cardiopulmonary disease. Reviewed, dictated and finalized at location A.
--- NOTE | ~2019-08-07 | XR_ITS ---
XR chest 2V DATE: 08/07/2019 13:13 INDICATION: Wheezing and shortness of breath. History of COPD. TECHNIQUE: PA and lateral views COMPARISON: 07/06/2019 portable AP chest FINDINGS: Bilateral hyperinflation, consistent with history of COPD. No pulmonary infiltrate or conso lidation, pleural effusion or pulmonary vascular congestion or pneumothorax. Heart size is borderline. There is aortic and great vessel calcification. Degenerative spurring of the thoracic and lumbar spine. IMPRESSION: COPD Reviewed, dictated and finalized at location A. IMPRESSION: COPD
--- NOTE | 2019-08-07 12:50 | ED.SOB ---
HPI - SOB/Dyspnea General Chief Complaint: Shortness of Breath/Dyspnea Stated Complaint: SOB Time Seen by Provider: 08/07/19 12:45 Source: patient Mode of arrival: ambulatory Limitations: no limitations History of Present Illness HPI Narrative: 79-year-old woman history of COPD, aortic stenosis, moderate to severe pulmonary hypertension comes in today complaining of shortness of breath was gone worse over the last 3 days. Patient states that she has noticed swelling in her left leg. She denies productive cough, fever, vomiting, abdominal pain, chest pain, diarrhea or rash. She has had no recent sick exposures or travel. She lives alone. MD elicited complaint: shortness of breath Pertinent past history: COPD and congestive heart failure Onset (ago): day(s) (3) Timing: constant and progressively worsening Severity: moderate Exacerbating factors: lying flat and exertion Relieving factors: oxygen and rest Known history of: COPD and congestive heart failure Associated symptoms: denies other symptoms Treatment prior to arrival: none Related Data Home oxygen amount: 3 liters Home Medications Medication Instructions Recorded Confirmed prednisone 20 mg PO DAILY 08/07/19 08/07/19 Allergies Allergy/AdvReac Type Severity Reaction Status Date / Time No Known Allergies Allergy Verified 08/07/19 11:54 Review of Systems Constitutional: Constitutional: Denies chills and Denies fever(s) Eyes: Eyes: Denies change in vision and Denies photophobia ENT: Denies dysphagia, Denies nasal congestion and Denies sore throat Cardiovascular: Cardiovascular: Denies chest pain, Reports rapid heart rate and Denies radiating jaw, neck or arm pain Respiratory: Respiratory: Reports as per HPI, Denies chest congestion, Denies cough, Reports dyspnea and Reports wheezing Gastrointestinal: Gastrointestinal: Denies abdominal pain, Denies diarrhea, Denies nausea and Denies vomiting Genitourinary: Genitourinary: Denies nocturia and Denies dysuria Musculoskeletal: Musculoskeletal: Denies arthralgias and Denies joint swelling Integumentary/Breasts: Skin/Breast: Denies pruritus, Denies erythema and Denies rash Neurologic: Denies vertigo, Denies dizziness, Denies syncope and Denies focal weakness Endocrine: Endocrine: Denies polydipsia and Denies polyuria Hematologic/Lymphatic: Hematologic/Lymphatic: Denies easy bleeding and Denies easy bruising Allergic/Immunologic: Allergic/Immunologic: Denies throat swelling and Denies tongue swelling PMFSH Past Medical History Medical History Abdominal pain in female patient (~02/28/19) Acute exacerbation of chronic obstructive pulmonary disease Acute exacerbation of chronic obstructive pulmonary disease (COPD) Aortic stenosis Cardiomegaly Chronic GERD Cigarette nicotine dependence Community acquired pneumonia COPD (chronic obstructive pulmonary disease) Dilatation of pulmonic artery Elevated troponin HTN (hypertension) Left groin pain (~02/28/19) Medical non-compliance Moderate to severe pulmonary hypertension (~2018) Nicotine dependence Requires supplemental oxygen Shortness of breath Smoker Spondylosis of thoracolumbar spine TMJ (temporomandibular joint disorder) Trichomonal infection (~2018) Urogenital infection by trichomonas vaginalis (~02/08/19) Surgical History Surgical History H/O tubal ligation History of appendectomy History of tonsillectomy Hx of cholecystectomy Social History Social History Social History: Signed a DNR. Does not want advanced interventions done. Lives at home alone. No family support or assistance. Landlord helps her with rides. No cigarettes for over a week. Smoking packs per day: 0.5 Smoking cigarettes per day: 10.0 Years smoked: 55 Smoking pack-years: 27.50 Smoking status: Current
--- NOTE | 2019-08-07 12:51 | ECG_ITS ---
Measurements Intervals [place] Rate: 86 P: 87 CO: 140 QRS: 94 QRSD: 86 T: 65 QT: 341 QTc: 409 Interpretive Statements SINUS RHYTHM ATRIAL AND VENTRICULAR PREMATURE COMPLEXES RIGHT ATRIAL ENLARGEMENT POSSIBLE LEFT ATRIAL ENLARGEMENT RIGHT AXIS DEVIATION DELAYED PRECORDIAL R/S TRANSITION BASELINE ARTIFACT- I, III, AVR, AVL, V4-V5 BORDERLINE ECG Electronically Signed On 08-07-2019 13:53:43 CDT by Benson Diaz D.O.
[2019-08-07 13:27] LABS: HCO3 ABG 37.3 mmol/L (23-29); Oxygen Content ABG 12.4 %vol (16.0-22.0); Oxygen Saturation ABG 98.4 % (95-97); Oxyhemoglobin 92.9 % (94-100); PO2 ABG 121.3 mmHg (75-85); Total Hemoglobin 9.3 g/dL; pH ABG 7.35 (7.35-7.45)
[2019-08-07 13:29] LABS: Basophils Absolute Auto 0.01 K/mm3 (0.00-0.10); Basophils Percent Auto 0.1 % (0.0-1.0); Eosinophils Absolute Auto 0.08 K/mm3 (0.02-0.50); Eosinophils Percent Auto 0.8 % (1.0-6.0); Hemoglobin 8.9 g/dL (11.7-13.8); Immature Granulocyte Absolute 0.07 K/mm3 (0.00-0.00); Immature Granulocyte Percent A 0.7 % (0.0-0.0); Lymphocytes Absolute Auto 1.71 K/mm3 (1.10-4.50); Lymphocytes Percent Auto 16.4 % (18.0-42.0); Mean Corpuscular HGB Conc 29.7 g/dL (32.0-36.0); Mean Corpuscular Hemoglobin 27.2 pg (27.0-31.0); Mean Corpuscular Volume 91.7 fL (78.0-102.0); Mean Platelet Volume 9.5 fl (9.2-11.8); Monocytes Absolute Auto 1.28 K/mm3 (0.10-0.90); Monocytes Percent Auto 12.3 % (2.0-11.0); Neutrophils Absolute Auto 7.3 K/mm3 (1.7-7.2); Neutrophils Percent Auto 69.7 % (50.0-70.0); Platelet Count Result 295 K/mm3 (150-420); Red Blood Count 3.27 M/mm3 (4.20-5.40); Red Cell Distribution Width 17.7 % (11.6-14.4); White Blood Count 10.4 K/mm3 (4.8-10.8)
[2019-08-07 13:29] LABS: Device NASAL CANNULA; Modified Allen's Test Pass; Site Drawn RIGHT RADIAL
[2019-08-07 13:45] LABS: Partial Thromboplastin Time 23.2 SEC (22.3-31.6); Prothrombin Time 9.9 Seconds (9.64-11.0)
[2019-08-07 13:47] LABS: Influenza Control Valid (Valid)
[2019-08-07 13:47] LABS: D Dimer 0.53 mg/L (0.19-0.50)
[2019-08-07] MEDS: FUROSEMIDE INJ 40 MG/4 ML VIAL IV PUSH (13:48)
[2019-08-07 13:55] LABS: Alanine Aminotransferase 19 U/L (14-59); Albumin Level 3.4 g/dL (3.4-5.0); Alkaline Phosphatase 68 U/L (46-116); Anion Gap 5.8 mmol/L (7-16); Aspartate Amino Transferase 14 U/L (15-37); Bilirubin,Total 0.2 mg/dL (0.00-1.00); Blood Urea Nitrogen 14 mg/dL (7-18); Carbon Dioxide 41 mmol/L (21-32); Chloride 101 mmol/L (98-108); Estimated CRCL calculation 58 ml/min; Estimated Glomerular Filt Rate > 60; Glucose 90 mg/dL (70-99); Osmolality Calculated 298 mOsm/kg (285-295); Potassium 3.8 mmol/L (3.5-5.1); Sodium 144 mmol/L (136-145); Total Protein 6.7 g/dL (6.4-8.2); Troponin I 0.02 ng/mL (0.00-0.056)
[2019-08-07 13:58] LABS: BNP 157 pg/mL (0-100)
[2019-08-07 13:59] LABS: Magnesium 1.8 mg/dL (1.8-2.4)
[2019-08-07 14:00] LABS: CRP < 0.2 mg/dL (0.0-0.9); Ferritin 7 ng/mL (8-252)
[2019-08-07 14:04] LABS: Add Urine Microscopic? NO; Appearance Urine Clear (Clear); Bilirubin Urine Negative (Negative); Blood Urine Negative (Negative); Color Urine Yellow (Yellow); Glucose Urine UA Negative (Negative); Ketones Urine Negative (Negative); Leukocyte Esterase Ur Negative LEU/UL (Negative); Nitrate Urine Negative (Negative); Protein Urine Negative (Negative); Specific Grav Ur 1.015 (1.010-1.020); Urobilinogen Urine 0.2 mg/dL (0.2-1.0); pH Urine 6.5 (5.0-8.0)
[2019-08-07 14:05] LABS: Lactic Acid 0.9 mmol/L (0.4-2.0)
[2019-08-07 14:07] LABS: Calcium 8.6 mg/dL (8.5-10.1)
[2019-08-07 14:08] LABS: BNP 157 pg/mL (0-100)
[2019-08-07] MEDS: ALBUTEROL SULFATE (*SP) INHALER 8 PUFF INHALATION ×2 (14:15→18:23)
[2019-08-07] MEDS: methylPREDNISolone SOD SUCC 125 MG VIAL IV PUSH (14:56)
--- NOTE | 2019-08-07 15:20 | ADMGEN ---
This patient, Paulette Mora, was admitted to 2nd Floor Room 209-1. Patient/family oriented to hospital policies and general routines including ID bracelet, bed and alarms, visiting hours, pain management, procedures, bathroom and other care routines, personal items, smoking policy, room service/diet, and visiting hours. Valuables list has been completed. Information on how to activate the Rapid Response Team has been discussed. Patient/Family are encouraged to report perceived risks to care and to ask questions if they do not understand what they are told or what they should do. Patient is resistant to admission, I would just walk right on out of here, if I could. Pt upset about ordered telemetry, states she will leave it on for a little bit but dont be surprised when I rip it off. Educated on reason for telemetry, to rule out arryhthmia that could be causing SOB, pt states, that doctor doesnt know a damn thing and I dont like him one bit. States, If I dont get out of here by tomorrow, I will walk out.
--- NOTE | 2019-08-07 15:59 | PM.IMHP ---
H&P: HPI History of Present Illness Chief complaint: SOB Narrative: Paulette Mora is a 79 year old female admitted today due to shortness of breath, dyspnea with exertion( even minimal exertion such as walking 8 ft to the bathroom). She comes in today complaining of shortness of breath was gone worse over the last 3 days. Patient states that she has noticed swelling in her left leg. She denies productive cough, fever, vomiting, abdominal pain, chest pain, diarrhea or rash. She has had no recent sick exposures or travel. She lives alone. She has a history of Cardiomegaly, Dilatation of pulmonic artery, Elevated troponin, COPD, aortic stenosis, congestive heart failure, moderate to severe pulmonary hypertension. Patient presented with acute shortness of breath and was being admitted to the hospital so [id number] testing was performed. She was influenza a and B negative. Her ABG at admission in the ED showed compensated chronic respiratory acidosis with metabolic alkalosis. her chest x-ray in the ED at admission showed COPD and her EKG showed sinus rhythm with PVCs. When I went to see Paulette this afternoon she was having a pretty hard time with breathing upon her return trip from the bathroom. It took her 2-3 minutes to rest and recover. Paulette told me that this started approximately 3 days ago and had progressively worsened over the last 3 days. She is currently on 3 L of oxygen per [place], which is the same as her home O2 use. She is unable to lay flat or exert herself without developing significant shortness of breath and lightheadedness. The only way she can recover is to put her oxygen on or increase her oxygen and rest. This patient is always ready to go home despite her obvious respiratory distress and inability to care for herself safely at this time. She is a chronic smoker of many years, Cigarette nicotine dependence, and will not give it up or reduce her use. She appears to be in acute exacerbation of chronic COPD. Other possible differential diagnoses include CHF, CAP, PE, COVID. She did say that there has been a lot of pollen around her home recently so allergies may be contributing to this exacerbation. Review of Systems Constitutional: Constitutional: Denies chills and Denies fever(s) Eyes: Eyes: Denies change in vision and Denies photophobia ENT: Denies dysphagia, Denies vertigo, Denies dizziness, Denies nasal congestion, Denies sore throat, Denies throat swelling and Denies tongue swelling Cardiovascular: Cardiovascular: Denies chest pain, Denies syncope, Reports rapid heart rate, Denies radiating jaw, neck or arm pain and Reports dyspnea Respiratory: Respiratory: Reports as per HPI, Denies chest congestion, Denies cough, Reports dyspnea and Reports wheezing Gastrointestinal: Gastrointestinal: Denies abdominal pain, Denies dysphagia, Denies diarrhea, Denies nausea and Denies vomiting Genitourinary: Genitourinary: Denies nocturia and Denies dysuria Musculoskeletal: Musculoskeletal: Denies arthralgias and Denies joint swelling Integumentary/Breasts: Skin/Breast: Denies pruritus, Denies erythema and Denies rash Neurologic: Denies vertigo, Denies dizziness, Denies syncope and Denies focal weakness Endocrine: Endocrine: Denies polydipsia and Denies polyuria Hematologic/Lymphatic: Hematologic/Lymphatic: Denies easy bleeding and Denies easy bruising Allergic/Immunologic: Allergic/Immunologic: Denies throat swelling, Denies tongue swelling and Reports wheezing PMFSH Past Medical History Medical History (Updated 08/07/19 @ 16:54 by Beatris Guy NP) Abdominal pain in female patient (~02/28/19) Acute exacerbation of chronic obstructive pulmonary disease Acute exacerbation of chronic obstructive pulmonary disease (COPD) Aortic stenosis Cardiomegaly Chronic GERD Cigarette nicotine dependence Community acquired pneumonia COPD (chronic obstructive pulmonary disease) Dilatation of pulmonic artery Elevated troponin HTN (hypert
[2019-08-07] MEDS: AZITHROMYCIN 250 MG TABLET 500 MG PO (16:56)
[2019-08-07] MEDS: LORATADINE 10 MG TABLET PO (17:50)
--- NOTE | 2019-08-07 19:03 | PC.NURSE ---
Addendum entered by Krista Guzman RN 08/07/19 19:19: PT ALSO RIPPED OFF HER TELEMETRY, STATES THE DOCTOR CAN PUT THIS ON WHATEVER ELSE HE WANTS BUT ITS NOT GOING BACK ON ME. ALSO NOTIFIED CHARGE NURSE OF PT REMOVAL OF TELE. Original Note: PT NOW REPORTS NOT FEELING ANY BETTER AFTER ALBUTEROL INHALER. DRAWING ATTENTION TO SWELLING IN HER LEFT ANKLE, ENCOURAGED TO ELEVATE BLE OR WEAR CRISTIAN HOSE, PT STATES SHE WILL TRY TO ELEVATE. UNABLE TO SIT UP IN BED WITH LEGS ELEVATED, PT IMMEDIATELY BACK TO TRIPOD POSITION ON OVERBED TABLE, FOOT STOOL UNDER FEET. STATES SHE WILL TRY THE CRISTIAN HOSE ONCE HER BREATHING GETS UNDER CONTROL. NOTIFIED CHARGE NURSE OF PATIENT CONDITION, SPO2 97% ON 3lpm.
--- NOTE | 2019-08-07 19:18 | PC.NURSE ---
Call placed to Dr Brennan regarding pt condition and refusal of telemetry. stated he will come up and evaluate her in a little bit.
--- NOTE | 2019-08-07 19:20 | PC.NURSE ---
PT CONTINUES TO SIT ON EDGE OF BED WITH ELBOWS ON OVERBED TABLE IN AN ARCHED POSITION, GRUNTING HAS DECREASED. LS DIM BILATERALLY WITH SCANT INTERMITTENT INS/EXP WHEEZES.
--- NOTE | 2019-08-07 19:35 | PC.NURSE ---
PT NOW SITTING UP IN CHAIR. BREATHING APPEARS MORE UNDER CONTROL, NO GRUNTING AT THIS TIME. HOWEVER, PT REPORTS NOT FEELING ANY BETTER. STATES, YOUR OXYGEN IS DIFFERENT THAT MINE AT HOME, IM NOT GETTING ANY AIR, TURN IT UP. INCREASED O2 TO 3.5lpm, CHARGE NURSE AWARE. PT STATES, NOW I CAN FEEL IT, THATS BETTER. PT STATES, IM SWEATING HERE JUST TRYING TO CATCH MY BREATH. OFFERED COOL WASHCLOTHS, YOU MEAN YOU ALL HAVE REAL TOWELS HERE? YES, PLEASE. THANKED NURSE. ENCOURAGED PATIENT TO CALL FOR ASSISTANCE WHEN READY TO GET BACK INTO BED, PT STATES, I CAN DO IT, I DON'T NEED ANY HELP. OFFERED RE-ASSURANCE AND HELP. NOTIFIED PATIENT OF DR. GERARD TO SEE HER SHORTLY, [place], IN THE MIDDLE OF SURVIVOR. (TV SHOW). CALL LIGHT AND BELONGINGS IN REACH, PT KEEPING FEET ELEVATED ON FOOT REST.
[2019-08-07 19:43] LABS: Troponin I 0.02 ng/mL (0.00-0.056)
--- NOTE | 2019-08-07 19:47 | PC.NURSE ---
DR. GERARD TO ROOM FOR ASSESSMENT. NO NEW ORDERS.
[2019-08-07] MEDS: MONTELUKAST SODIUM 10 MG TABLET PO (20:55)
[2019-08-07] MEDS: SALMET XINAFT/FLUTIC PROPIN 250 MCG/50 MCG INH CAP 1 PUFF INHALATION (20:56)
[2019-08-08] VITALS (13 sets, daily range): BP systolic 105–144; BP diastolic 34–67; PULSE 48–96; RESP 18–20; TEMP 36.4–37.1; O2SAT 96–99
[2019-08-08 00:20] LABS: Troponin I 0.02 ng/mL (0.00-0.056)
[2019-08-08] MEDS: LEVOTHYROXINE SODIUM 25 MCG TABLET PO (05:34)
[2019-08-08 05:55] LABS: Eosinophils Absolute Auto 0.01 K/mm3 (0.02-0.50); Eosinophils Percent Auto 0.1 % (1.0-6.0); Hemoglobin 7.8 g/dL (11.7-13.8); Immature Granulocyte Absolute 0.04 K/mm3 (0.00-0.00); Immature Granulocyte Percent A 0.6 % (0.0-0.0); Lymphocytes Absolute Auto 0.51 K/mm3 (1.10-4.50); Lymphocytes Percent Auto 7.4 % (18.0-42.0); Mean Corpuscular HGB Conc 28.9 g/dL (32.0-36.0); Mean Platelet Volume 10.3 fl (9.2-11.8); Monocytes Absolute Auto 0.46 K/mm3 (0.10-0.90); Monocytes Percent Auto 6.6 % (2.0-11.0); Neutrophils Absolute Auto 5.9 K/mm3 (1.7-7.2); Neutrophils Percent Auto 85.3 % (50.0-70.0); Platelet Count Result 251 K/mm3 (150-420); Red Cell Distribution Width 17.8 % (11.6-14.4); White Blood Count 6.9 K/mm3 (4.8-10.8)
[2019-08-08 06:14] LABS: BNP 53.6 pg/mL (0-100)
[2019-08-08 06:21] LABS: Alanine Aminotransferase 19 U/L (14-59); Alkaline Phosphatase 58 U/L (46-116); Anion Gap 6.2 mmol/L (7-16); Aspartate Amino Transferase 15 U/L (15-37); Bilirubin,Total 0.1 mg/dL (0.00-1.00); Blood Urea Nitrogen 16 mg/dL (7-18); Calcium 8.7 mg/dL (8.5-10.1); Carbon Dioxide 39 mmol/L (21-32); Chloride 101 mmol/L (98-108); Estimated CRCL calculation 65 ml/min; Estimated Glomerular Filt Rate > 60; Glucose 112 mg/dL (70-99); Osmolality Calculated 296 mOsm/kg (285-295); Potassium 4.2 mmol/L (3.5-5.1); Sodium 142 mmol/L (136-145)
[2019-08-08 06:27] LABS: Troponin I 0.02 ng/mL (0.00-0.056)
[2019-08-08 10:02] LABS: Iron 13 ug/dL (50-170); Percent Iron Saturation 3 % (12-57)
[2019-08-08] MEDS: SALMET XINAFT/FLUTIC PROPIN 250 MCG/50 MCG INH CAP 1 PUFF INHALATION ×2 (10:08→21:24)
[2019-08-08] MEDS: AZITHROMYCIN 250 MG TABLET 500 MG PO (10:08)
[2019-08-08] MEDS: LORATADINE 10 MG TABLET PO (10:08)
[2019-08-08] MEDS: methylPREDNISolone SOD SUCC 125 MG VIAL 80 MG IV PUSH (10:08)
[2019-08-08] MEDS: POTASSIUM CHLORIDE 10 MEQ TABLET 20 MEQ PO (10:09)
[2019-08-08] MEDS: FUROSEMIDE 40 MG TABLET PO (10:09)
[2019-08-08 11:50] LABS: Folic Acid 14.4 ng/mL (8.6->20); Vitamin B12 255 pg/mL (193-986)
[2019-08-08 13:05] LABS: SARS-CoV-2 RNA PCR Negative
[2019-08-08] MEDS: IRON SUCROSE COMPLEX 200 MG in SODIUM CHLORIDE 0.9% IV 100 ML 100 MG IVPB (13:25)
[2019-08-08] MEDS: FUROSEMIDE INJ 40 MG/4 ML VIAL 20 MG IV PUSH ×2 (14:58→21:11)
--- NOTE | 2019-08-08 15:59 | PM.IMPN ---
Progress Note: A&P Assessment and Plan (1) Acute exacerbation of chronic obstructive pulmonary disease (COPD): Code(s): J44.1 - Chronic obstructive pulmonary disease with (acute) exacerbation Status: Acute Assessment and Plan: very short of breath with any exertion at admission, , much worse than her baseline yesterday, IMPROVED today patient refuses to see a rouge sifter or a turfgrass technician despite her primary care and my urging will treat allergies using Claritin and Singulair her COVID testing returned as negative white count is 6.9 with no fevers noted overnight or today D-dimer was mildly elevated at 0.53 at admission, likely reactive to her acute COPD exacerbation or other possible diagnoses include cancer, PE, DVT her ABG showed a pCO2 of 69 and a PO2 of 121, she is a chronic CO2 retainer with a pCO2 of 73 on July 05, and a pCO2 of 54 on June 04. In the past she has run out of her medications and that has pushed her into an acute exacerbation, as her hospital visits appear to be more frequently every month . given 125 mg of Solu-Medrol in the ER, ordered 80 mg of Solu-Medrol for the morning, as her lung sounds still are very tight and wheezy throughout, with Rhonchi on left side. (2) Suspected COVID-19 virus infection: Code(s): Z20.828 - Contact with and (suspected) exposure to other viral communicable diseases Status: Acute Assessment and Plan: COVID testing collected chest x-ray completed today at ED admission showing bilateral hyperinflation consistent with history of COPD, no pulmonary infiltrate or consolidation no pleural effusion or pulmonary vascular congestion no pneumothorax. patient placed in COVID isolation room in the COVID isolation hallway with appropriate PPE being used no fevers at admission or at this time white count within normal limits patient denies any COVID exposures tachycardic only with exertion not while at rest, no abdominal pain, no chest pain, no productive cough ordered a repeat chest x-ray for tomorrow morning Uses 3 L of oxygen at home, maintaining adequate O2 sats here on 3 L of oxygen (3) Congestive heart failure: Onset Date: ~2018 Code(s): I50.9 - Heart failure, unspecified Status: Acute Assessment and Plan: was given 40 of Lasix in the ED her BNP was 157 yesterday and then 54 today; compared to July 05 a month ago it was 59.8 she has a history of having intermittent CHF exacerbations that compound her COPD diuresis today with the Venofer and with the packed red blood cells by using 20 of IV Lasix with each infusion no significant edema noted on my exam today. Eduar hose stockings ordered SCDs ordered strict intake and output ordered daily weights ordered (4) Anemia, iron deficiency: Code(s): D50.9 - Iron deficiency anemia, unspecified Status: Acute Assessment and Plan: Symptomatic anemia with dizziness and lightheadedness normal orthostatic vital signs becames significantly dizzy and lightheaded with any position changes Checked her vitamin B12 and her folate found them to be normal checked her iron panel found her iron and% saturation to be very low, her ferritin was low, ordered her a dose of IV Venofer for today. further Anemic today. hemoglobin yesterday was 8.9 with a hematocrit of 30. Her hemoglobin today is 7.8 with a hematocrit of 27. not on iron at home. I believe her anemia is compounding her situation, especially with exertion as she has proven to become severely dyspneic with any exertion or any short ambulation distances. will transfuse 1 unit of RBCs today discontinued the subcu Lovenox and ordered Eduar hose stockings as well as SCDs ordered occult stool sample ordered her to start oral iron and vitamin-C tomorrow morning. Subjective Date/time seen: 08/08/19 15:50 Paulette is not feeling any better today. She was resting in bed on her left side when I went to s
[2019-08-08] MEDS: SODIUM CHLORIDE 0.9% IV 250 ML 30 ML IV CONT (17:40)
[2019-08-08] MEDS: IPRATROPIUM 0.5 MG/ALBUTEROL SULFATE 2.5 MG AMPUL.NEB 3 ML INHALATION (17:58)
[2019-08-08 21:29] LABS: Hematocrit 33.6 % (35.0-42.0); Hemoglobin 10.2 g/dL (11.7-13.8)
[2019-08-09] MEDS: LEVOTHYROXINE SODIUM 25 MCG TABLET PO (05:36)
[2019-08-09 05:53] LABS: Basophils Absolute Auto 0.01 K/mm3 (0.00-0.10); Basophils Percent Auto 0.1 % (0.0-1.0); Eosinophils Absolute Auto 0.01 K/mm3 (0.02-0.50); Eosinophils Percent Auto 0.1 % (1.0-6.0); Hematocrit 33.5 % (35.0-42.0); Hemoglobin 10.3 g/dL (11.7-13.8); Immature Granulocyte Absolute 0.08 K/mm3 (0.00-0.00); Immature Granulocyte Percent A 0.8 % (0.0-0.0); Lymphocytes Absolute Auto 1.36 K/mm3 (1.10-4.50); Lymphocytes Percent Auto 13.5 % (18.0-42.0); Mean Corpuscular HGB Conc 30.7 g/dL (32.0-36.0); Mean Corpuscular Hemoglobin 27.2 pg (27.0-31.0); Mean Corpuscular Volume 88.6 fL (78.0-102.0); Mean Platelet Volume 9.8 fl (9.2-11.8); Monocytes Absolute Auto 0.92 K/mm3 (0.10-0.90); Monocytes Percent Auto 9.1 % (2.0-11.0); Neutrophils Absolute Auto 7.7 K/mm3 (1.7-7.2); Neutrophils Percent Auto 76.4 % (50.0-70.0); Platelet Count Result 285 K/mm3 (150-420); Red Blood Count 3.78 M/mm3 (4.20-5.40); Red Cell Distribution Width 16.8 % (11.6-14.4); White Blood Count 10.1 K/mm3 (4.8-10.8)
[2019-08-09] MEDS: IPRATROPIUM 0.5 MG/ALBUTEROL SULFATE 2.5 MG AMPUL.NEB 3 ML INHALATION (05:54)
[2019-08-09 05:55] VITALS: PULSE 66; RESP 20
[2019-08-09 06:04] VITALS: PULSE 68; RESP 20
[2019-08-09 06:20] LABS: Alanine Aminotransferase 19 U/L (14-59); Albumin Level 3.1 g/dL (3.4-5.0); Alkaline Phosphatase 62 U/L (46-116); Anion Gap 4.9 mmol/L (7-16); Aspartate Amino Transferase 13 U/L (15-37); Bilirubin,Total 0.3 mg/dL (0.00-1.00); Blood Urea Nitrogen 17 mg/dL (7-18); Calcium 8.7 mg/dL (8.5-10.1); Carbon Dioxide 40 mmol/L (21-32); Chloride 103 mmol/L (98-108); Estimated CRCL calculation 55 ml/min; Estimated Glomerular Filt Rate > 60; Glucose 88 mg/dL (70-99); Magnesium 2.1 mg/dL (1.8-2.4); Osmolality Calculated 298 mOsm/kg (285-295); Phosphorus 4.2 mg/dL (2.6-4.7); Potassium 3.9 mmol/L (3.5-5.1); Sodium 144 mmol/L (136-145); Total Protein 6.1 g/dL (6.4-8.2)
[2019-08-09 06:24] LABS: BNP 65.8 pg/mL (0-100)
[2019-08-09 07:25] VITALS: BP 130/66; PULSE 89; RESP 18; TEMP 37.1; O2SAT 96
[2019-08-09] MEDS: FERROUS SULFATE 324 MG TABLET PO (09:52)
[2019-08-09] MEDS: ASCORBIC ACID 500 MG TABLET PO (09:53)
[2019-08-09] MEDS: AZITHROMYCIN 250 MG TABLET 500 MG PO (09:53)
[2019-08-09] MEDS: POTASSIUM CHLORIDE 10 MEQ TABLET 20 MEQ PO (09:53)
[2019-08-09] MEDS: SALMET XINAFT/FLUTIC PROPIN 250 MCG/50 MCG INH CAP 1 PUFF INHALATION (09:55)
--- NOTE | 2019-08-09 11:07 | PM.DS ---
DS: Diagnosis Admitting Diagnosis Admitting Diagnosis: Chronic obstructive pulmonary disease with (acute) exacerbation Discharge Diagnosis (1) Acute exacerbation of chronic obstructive pulmonary disease (COPD): Code(s): J44.1 - Chronic obstructive pulmonary disease with (acute) exacerbation Status: Acute Assessment and Plan: Much IMPROVED today, patient feels so well, that she is ambulating around her hospital room and the hallway without her O2 on, despite staff frequent reminders to put it on. patient refuses to see a ruling machine set up operator or a meringuer despite her primary care and my urging will treat allergies using Claritin and Singulair her COVID testing returned as negative white count is 10.1 with no fevers noted overnight or today D-dimer was mildly elevated at 0.53 at admission, likely reactive to her acute COPD exacerbation or other possible diagnoses include cancer, PE, DVT her ABG showed a pCO2 of 69 and a PO2 of 121, she is a chronic CO2 retainer with a pCO2 of 73 on July 05, and a pCO2 of 54 on June 04. In the past she has run out of her medications and that has pushed her into an acute exacerbation, as her hospital visits appear to be more frequently every month . given 125 mg of Solu-Medrol in the ER, ordered 80 mg of Solu-Medrol for the morning, another dose of 60mg this morning. (2) Suspected COVID-19 virus infection: Code(s): Z20.828 - Contact with and (suspected) exposure to other viral communicable diseases Status: Acute Assessment and Plan: COVID testing collected and Negative. chest x-ray completed today at ED admission showing bilateral hyperinflation consistent with history of COPD, no pulmonary infiltrate or consolidation no pleural effusion or pulmonary vascular congestion no pneumothorax. patient placed in COVID isolation room in the COVID isolation hallway with appropriate PPE being used no fevers at admission or at this time white count within normal limits patient denies any COVID exposures tachycardic only with exertion not while at rest, no abdominal pain, no chest pain, no productive cough ordered a repeat chest x-ray and no acute concerns note on it. Uses 3 L of oxygen at home, maintaining adequate O2 sats here on 3 L of oxygen (3) Congestive heart failure: Onset Date: ~2018 Code(s): I50.9 - Heart failure, unspecified Status: Acute Assessment and Plan: was given 40 of Lasix in the ED and a few more doses with her Venofer and RBC. her BNP was 157 yesterday and then 54 and 66 today; compared to July 05 a month ago it was 59.8 she has a history of having intermittent CHF exacerbations that compound her COPD diuresis today with the Venofer and with the packed red blood cells by using 20 of IV Lasix with each infusion no significant edema noted on my exam today. Eduar hose stockings ordered SCDs ordered strict intake and output ordered daily weights ordered (4) Anemia, iron deficiency: Code(s): D50.9 - Iron deficiency anemia, unspecified Status: Acute Assessment and Plan: Symptomatic anemia with dizziness and lightheadedness normal orthostatic vital signs becames significantly dizzy and lightheaded with any position changes Checked her vitamin B12 and her folate found them to be normal checked her iron panel found her iron and% saturation to be very low, her ferritin was low, ordered her a dose of IV Venofer for yesterday further Anemic today. hemoglobin at admission was 8.9 with a hematocrit of 30. then hemoglobin yesterday is 7.8 with a hematocrit of 27. and TODAY, Hgb 10.3, Hct 33.5. not on iron at home. I believe her anemia is compounding her situation, especially with exertion as she has proven to become severely dyspneic with any exertion or any short ambulation distances. will transfuse 1 unit of RBCs yesterday discontinued the subcu Lovenox and ordered Eduar hose stockings as well as SC
[2019-08-09] MEDS: predniSONE 20 MG TABLET 60 MG PO (11:25)
--- NOTE | 2019-08-09 11:30 | PC.NURSE ---
All discharge instructions and education reviewed with patient. Patient states understanding. Patient states she is not going to take some of the medication. Nurse educated patient on the importance of the taking those medications. Patient states understanding. IV site removed, tip in intact. Dressing applied to site. All belongings gathered and sent home with patient. Julita, patients neighbor called to come pick patient up. Julita will be here at noon to take patient home. Patient sitting at side of bed with call light at side.
--- NOTE | 2019-08-09 12:10 | PC.NURSE ---
Patients neighbor here to taker patient home. Patient accompanied to front door via wheelchair by this nurse. Home 02 applied. Patient left via private vehicle with neighbor.
== END 2019-08-09 12:10 | disposition home or self-care (01) | DRG 192 ==
LOC: CHSED 14:49 → CHS2ND 14:59
PROVIDERS: Nurse Practitioner; Admitting Provider Emergency Medicine; Emergency Provider Emergency Medicine; PCP Nurse Practitioner Family; Visit Provider Emergency Medicine
DX: J44.1 Chronic obstructive pulmonary disease with (acute) exacerbation (principal); I35.0 Nonrheumatic aortic (valve) stenosis; I11.0 Hypertensive heart disease with heart failure; I50.9 Heart failure, unspecified; D50.9 Iron deficiency anemia, unspecified; I27.20 Pulmonary hypertension, unspecified; M47.815 Spondylosis without myelopathy or radiculopathy, thoracolumbar region; K21.9 Gastro-esophageal reflux disease without esophagitis; F17.210 Nicotine dependence, cigarettes, uncomplicated; Z99.81 Dependence on supplemental oxygen
CPT/HCPCS: 36415; 36430; 36600; 71046; 80053; 81003; 82607; 82728; 82746; 82805; 83540; 83550; 83605; 83735; 83880; 84100; 84484; 85014; 85018; 85025; 85380; 85610; 85730; 86140; 86850; 86900; 86901; 86920; 87040; 87635; 87804; 93005; 94640; 96365; 96374; 96375; 96376; 97161; 97165; 99285; A9270; G0378; J1650; J1756; J1940; J2930; J7050; J7512; P9016; U0003

== ENCOUNTER 2020-02-19 14:10 | Outpatient (NON) | payer MEDICARE, SELFPAY ==
[2020-02-19 15:13] LABS: Thyroid Stimulating Hormone Reflex 2.22 u/IU/mL (0.36-3.74)
== END 2020-02-19 14:11 ==
LOC: CHSLAB 14:11
PROVIDERS: Visit Provider Family Medicine
DX: I50.9 Heart failure, unspecified (principal)
CPT/HCPCS: 36415; 84443

== ENCOUNTER 2020-11-20 16:26 | Inpatient (IN) | payer MEDICARE, SELFPAY ==
[2020-11-20] VITALS (9 sets, daily range): BP systolic 100–126; BP diastolic 54–91; PULSE 74–91; RESP 16–22; TEMP 36.1–37.1; O2SAT 89–100
--- NOTE | ~2020-11-20 | CT_ITS ---
EXAMINATION: CTA chest PE protocol DATE: 11/22/2020 11:15 INDICATION: Shortness of breath. Elevated d-dimer. TECHNIQUE: Computed tomography (CT) pulmonary angiogram of the chest was performed with 100 mL Omnipa que-350 intravenous contrast. Additional 3D reconstructions utilizing coronal maximum intensity proje ction (MIP) were performed. Automated exposure control and iterative reconstruction technique were em ployed. The dose-length product was 243.11 mGy-cm. COMPARISON: 02/08/2019 FINDINGS: Excellent contrast opacification of the pulmonary arteries. There is mild streak artifact from dense contrast in the superior vena cava and right atrium. Mild to moderate scattered respiratory motion ar tifact which decreases sensitivity and specificity in the smaller subsegmental pulmonary arteries. Th ere appears to be lower attenuation pulmonary arterial filling defect within a branch of the anterome dial basilar segmental pulmonary artery of the left lower lobe. No other lesions suspicious for pulmo nary emboli identified in either lung. Moderate emphysema. Interval decrease in size of a small left pleural effusion. Increase in size of a now moderate-sized right pleural effusion with complete colla pse of the right middle and lower lobes and partial collapse of the posterior segment of the right up per lobe. There are fluid-filled bronchi in the collapsed portion of the lungs and could not exclude superimposed pneumonia. Mild dependent atelectasis at the basilar left lower lobe. No evident pulmona ry edema within the aerated portions of the lungs. Cardiomegaly with moderate sized pericardial effus ion. Atherosclerotic coronary artery calcifications. Atherosclerotic calcific changes along the petey l caliber thoracic aorta with no dissection. Prominent enlargement of the central pulmonary arteries consistent with pulmonary arterial hypertension. No pathologically enlarged thoracic lymphadenopathy. Cholecystectomy clips at the gallbladder fossa. Moderate thoracic and severe lumbar spondylosis. IMPRESSION: 1. Likely pulmonary embolism within a single subsegmental pulmonary artery in the anteromedial basila r segment of the left lower lobe with sensitivity and specificity in the subsegmental pulmonary arter ies decreased by some motion artifact. 2. Enlarging moderate-sized right pleural effusion with collapse of the right middle and lower lobes and partial collapse of the posterior segment of the right upper lobe. This and the above finding of pulmonary embolism were discussed with RAHEEM Meeks at 12:12 PM. 3. Decreasing small left pleural effusion with mild dependent atelectasis in the left lower lobe. 4. Fluid-filled bronchi in the collapsed right middle and lower lobes and cannot exclude superimposed pneumonia. 5. Moderate emphysema. 6. Cardiomegaly and moderate-sized pericardial effusion. 7. Enlargement of the central pulmonary arteries consistent with pulmonary arterial hypertension. Reviewed, dictated and finalized at location A. IMPRESSION: 1. Likely pulmonary embolism within a single subsegmental pulmonary artery in t he anteromedial basilar segment of the left lower lobe with sensitivity and spe cificity in the subsegmental pulmonary arteries decreased by some motion artifa ct. 2. Enlarging moderate-sized right pleural effusion with collapse of the right m iddle and lower lobes and partial collapse of the posterior segment of the righ t upper lobe. This and the above finding of pulmonary embolism were discussed w lion Meeks at 12:12 PM. 3. Decreasing small left pleural effusion with mild dependent atelectasis in th e left lower lobe. 4. Fluid-filled bronchi in the collapsed right middle and lower lobes and canno t exclude superimposed pneumonia. 5. Moderate emph
--- NOTE | ~2020-11-20 | XR_ITS ---
XR chest 1V portable DATE: 11/20/2020 17:33 INDICATION: Hypoxia TECHNIQUE: Portable AP views on 11/20/2020 at 1728 1729 hours COMPARISON: 08/08/2019 2 view chest FINDINGS: There is opacification of the lower half of the right chest likely due to combined right pl eural effusion and right lower lung atelectasis/consolidation. There is left lower lobe infiltrate and/atelectasis. Cardiomegaly. Aortic calcification. Diffuse osteopenia. Prominent bilateral glenohumeral osteoarthritis. Degenerative change of the cervical and thoracic spi ne. IMPRESSION: Right pleural effusion and right lower lung infiltrate/atelectasis with opacification of the lower half of the right hemithorax Left lower lobe infiltrate and/atelectasis Cardiomegaly, aortic atherosclerosis Reviewed, dictated and finalized at location A.
--- NOTE | ~2020-11-20 | CT_ITS ---
EXAMINATION: CT brain wo con DATE: 11/20/2020 17:23 INDICATION: Altered mental status. Confusion. Weakness. TECHNIQUE: Computed tomography (CT) of the head was performed without intravenous contrast. The mA wa s adjusted according to patient size. Iterative reconstruction technique was employed. The dose-lengt h product was 756.67 mGy-cm. COMPARISON: Head CT 02/27/2012 FINDINGS: There is no intracranial hemorrhage, acute infarction, or abnormal intracranial mass lesion . The ventricles are normal in size. There is mild mucosal thickening in the paranasal sinuses. The o rbits are normal. There are bilateral otomastoid effusions. IMPRESSION: 1. Normal brain. 2. Bilateral otomastoid effusions. Reviewed, dictated and finalized at location A.
--- NOTE | ~2020-11-20 | XR_ITS ---
EXAMINATION: XR chest 1V portable DATE: 11/21/2020 09:43 INDICATION: Shortness of breath and labored breathing. TECHNIQUE: frontal view of the chest was obtained. COMPARISON: Chest radiograph dated 11/20/2020 FINDINGS: Significant increase in opacification of the right hemithorax consistent with enlarging moderate to l arge right pleural effusion and associated atelectasis and/or pneumonia. Left costophrenic angle is e xcluded from the [id number]. Less dense opacities in the left lower lung zone which could represen t additional atelectasis, pneumonia and/or small left pleural effusion. No pneumothorax. Skin folds p roject over the lateral left hemithorax. Cardiomegaly. Moderate to severe degenerative skeletal es in the spine and at the bilateral shoulders. IMPRESSION: 1. Increasing moderate to large right pleural effusion with worsening associated atelectasis and/or p neumonia. 2. Mild opacities at the left lower lung zone which could represent atelectasis, pneumonia and/or sma ll left pleural effusion. 3. Cardiomegaly. Reviewed, dictated and finalized at location A. IMPRESSION: 1. Increasing moderate to large right pleural effusion with worsening associate d atelectasis and/or pneumonia. 2. Mild opacities at the left lower lung zone which could represent atelectasis , pneumonia and/or small left pleural effusion. 3. Cardiomegaly.
--- NOTE | 2020-11-20 16:38 | ECG_ITS ---
Measurements Intervals [place] Rate: 104 P: 74 WI: 134 QRS: 100 QRSD: 86 T: 51 QT: 311 QTc: 410 Interpretive Statements SINUS TACHYCARDIA ATRIAL PREMATURE COMPLEXES RIGHT AXIS DEVIATION CANNOT RULE OUT SEPTAL INFARCT, AGE INDETERMINATE BORDERLINE T WAVE ABNORMALITY- HIGH LATERAL LEADS BASELINE ARTIFACT- I, II, AVR, AVL, AVF ABNORMAL ECG Electronically Signed On 11-20-2020 17:45:57 CDT by Benson Diaz D.O.
[2020-11-20 17:04] LABS: Basophils Absolute Auto 0.02 K/mm3 (0.00-0.10); Basophils Percent Auto 0.4 % (0.0-1.0); Hematocrit 23.6 % (35.0-42.0); Immature Granulocyte Absolute 0.02 K/mm3 (0.00-0.00); Immature Granulocyte Percent A 0.4 % (0.0-0.0); Lymphocytes Percent Auto 18.7 % (18.0-42.0); Mean Corpuscular HGB Conc 26.3 g/dL (32.0-36.0); Mean Corpuscular Hemoglobin 25.9 pg (27.0-31.0); Mean Corpuscular Volume 98.7 fL (78.0-102.0); Mean Platelet Volume 10.5 fl (9.2-11.8); Monocytes Absolute Auto 0.39 K/mm3 (0.10-0.90); Monocytes Percent Auto 8.1 % (2.0-11.0); Neutrophils Absolute Auto 3.5 K/mm3 (1.7-7.2); Neutrophils Percent Auto 72.4 % (50.0-70.0); Platelet Count Result 195 K/mm3 (150-420); Red Blood Count 2.39 M/mm3 (4.20-5.40); Red Cell Distribution Width 15.5 % (11.6-14.4); White Blood Count 4.8 K/mm3 (4.8-10.8)
[2020-11-20 17:18] LABS: INR 1.1; Prothrombin Time 11.7 Seconds (9.50-12.10)
[2020-11-20 17:20] LABS: Hemoglobin 6.2 g/dL (11.7-13.8)
[2020-11-20 17:21] LABS: D Dimer 3.48 mg/L (0.19-0.50)
--- NOTE | 2020-11-20 17:26 | ED.GENADULT ---
HPI - General Adult General Chief complaint: Fall Stated complaint: AMB Time Seen by Provider: 11/20/20 16:38 Source: patient Mode of arrival: EMS Limitations: altered mental status History of Present Illness HPI narrative: Paulette is a 80F with a PMH of COPD, anemia, aortic stenosis, cardiomegaly, pulmonary hypertension, hypothyroidism, CHF, that was brought to the ED by EMS with AMS after a reported fall. She was found down by her neighbor and she told them she fell but told EMS she didn't. She is unsure of what happened. Her mental status waxes and wanes here today. Related Data Allergies Allergy/AdvReac Type Severity Reaction Status Date / Time No Known Allergies Allergy Verified 10/28/20 13:38 Review of Systems Review of Systems: ROS unobtainable: Yes unobtainable due to medical condition [facility] Past Medical History Medical History Abdominal pain in female patient (~02/28/19) Acute exacerbation of chronic obstructive pulmonary disease Acute exacerbation of chronic obstructive pulmonary disease (COPD) Aortic stenosis Cardiomegaly Chronic GERD Cigarette nicotine dependence Community acquired pneumonia COPD (chronic obstructive pulmonary disease) Dilatation of pulmonic artery Dizziness Dyspnea Elevated troponin HTN (hypertension) Left groin pain (~02/28/19) Medical non-compliance Moderate to severe pulmonary hypertension (~2018) Nicotine dependence Pericardial effusion Pleural effusion Requires supplemental oxygen Shortness of breath Smoker Spondylosis of thoracolumbar spine Suspected COVID-19 virus infection TMJ (temporomandibular joint disorder) Trichomonal infection (~2018) Urogenital infection by trichomonas vaginalis (~02/08/19) Surgical History Surgical History H/O tubal ligation History of appendectomy History of tonsillectomy Hx of cholecystectomy Family History Family History Father Acute myocardial infarction Mother Acute myocardial infarction Social History Social History Social History: Signed a DNR. Does not want advanced interventions done. Lives at home alone. No family support or assistance. Landlord helps her with rides. No cigarettes for over a week. Smoking packs per day: 0.5 Smoking cigarettes per day: 10.0 Years smoked: 55 Smoking pack-years: 27.50 Smoking status: Current every day smoker Tobacco type: cigarettes Second hand tobacco smoke exposure: No Additional smoking assessment comments: states has not been smoking much lately due to shortness of breath Alcohol intake: unknown Substance use: unknown Substance use type: unknown Gender identity (if verbalized by the patient): Female Spiritual care concerns: No Agree to blood products: Yes Exam Const: General: confusion and ill appearing Limitations: altered mental status Other: Moderate distress HENMT: Head: normal to inspection Other: atrauamtic Eyes: Conjunctivae: conjunctivae normal Pupils: Equal, round and reactive pupils present Neck: Neck: normal visual inspection Chest: Chest palpation & inspection: normal inspection of the chest Resp: Effort & Inspection: labored and tachypneic Auscultation: clear to auscultation bilaterally Cardio: Rate: tachycardic Heart sounds: Murmur heart sound present systolic GI: Inspection: non-distended GI Palp: Yes Soft to palpation, No Tenderness to palpation present (GI) and No Guarding due to palpation present (GI) : General: No CVA tenderness Urinary Catheter: Urinary Catheter: patent and draining Skin: General skin exam: normal color Rashes: no rashes Neuro: General: moves all extremities Other: Oriented to person only Extrem: General: normal to inspection Course Course Emergency Course: Paulette bryan
[2020-11-20 17:30] LABS: Lactic Acid Reflex 3.7 mmol/L (0.4-2.0)
[2020-11-20 17:31] LABS: Alanine Aminotransferase 19 U/L (14-59); Albumin Level 3.3 g/dL (3.4-5.0); Alkaline Phosphatase 63 U/L (46-116); Anion Gap 2 mmol/L (8-16); Aspartate Amino Transferase 15 U/L (15-37); Bilirubin,Total 0.3 mg/dL (0.00-1.00); Blood Urea Nitrogen 12 mg/dL (7-18); Calcium 8.1 mg/dL (8.5-10.1); Carbon Dioxide 43 mmol/L (21-32); Chloride 105 mmol/L (98-108); Creatine Kinase 26 U/L (26-192); Estimated Glomerular Filt Rate > 60; Glucose 200 mg/dL (70-99); NT Pro B Type Natriuretic Pept 418 pg/mL (0-450); Osmolality Calculated 315 mOsm/kg (285-295); Potassium 3.7 mmol/L (3.5-5.1); Sodium 150 mmol/L (136-145); Total Protein 6.2 g/dL (6.4-8.2); Troponin I 59.5 ng/L (0.00-60.4)
[2020-11-20 17:36] LABS: Thyroid Stimulating Hormone 4.99 uIU/mL (0.36-3.74)
[2020-11-20 18:42] LABS: Add Urine Microscopic? YES; Appearance Urine Clear (Clear); Bilirubin Urine 1+ (Negative); Blood Urine 1+ (Negative); Color Urine Yellow (Yellow); Glucose Urine UA Trace (Negative); Ketones Urine Trace (Negative); Leukocyte Esterase Ur Negative (Negative); Nitrate Urine Negative (Negative); Protein Urine 3+ (Negative); Specific Grav Ur 1.025 (1.010-1.020)
[2020-11-20 18:43] LABS: Bacteria Urine Trace /hpf; RBC Urine 0-2 /hpf (0-2); Squamous Epithelial Cell Urine Few /hpf (Few)
[2020-11-20 18:52] LABS: Amphetamine Screen Urine Negative (Negative); Barbiturate Screen Urine Negative (Negative); Benzodiazepines Screen Urine Negative (Negative); Cannabinoid Screen Urine Negative (Negative); Cocaine Screen Urine Negative (Negative); Methadone Screen Urine Negative (Negative); Opiate Screen Urine Negative (Negative); Phencyclidine Screen Urine Negative (Negative)
--- NOTE | 2020-11-20 19:18 | PC.NURSE ---
oriented to new clinical care leader, patient responds to name promptly, denies pain. Friend here at bedside
[2020-11-20 20:01] LABS: Reflex Lactic Acid Yes or No Add Lactic
--- NOTE | 2020-11-20 21:10 | PC.NURSE ---
Blood transfusion started. Pt tolerating well. See TAR. SPO2 65%on 2L O2 per NC. NRBM placed at 15L, SPO2 increased to 99-100%. Pt has no complaints.
--- NOTE | 2020-11-20 21:50 | PC.NURSE ---
Dr. Flannery notified when rounding of patients SAO2 drop and NRBM placed breifly to bring it up.
--- NOTE | 2020-11-20 23:51 | ADMGEN ---
This patient, Paulette Mora, was admitted to 2nd Floor Room 208-2. Patient/family oriented to hospital policies and general routines including ID bracelet, bed and alarms, visiting hours, pain management, procedures, bathroom and other care routines, personal items, smoking policy, room service/diet, and visiting hours. Information on how to activate the Rapid Response Team has been discussed. Patient/Family are encouraged to report perceived risks to care and to ask questions if they do not understand what they are told or what they should do.
[2020-11-21] VITALS (10 sets, daily range): BP systolic 92–131; BP diastolic 47–75; PULSE 86–98; RESP 20–28; TEMP 36.1–36.9; O2SAT 50–100
[2020-11-21 06:26] LABS: Basophils Absolute Auto 0.02 K/mm3 (0.00-0.10); Basophils Percent Auto 0.3 % (0.0-1.0); Eosinophils Absolute Auto 0.01 K/mm3 (0.02-0.50); Eosinophils Percent Auto 0.2 % (1.0-6.0); Hematocrit 31.1 % (35.0-42.0); Hemoglobin 8.7 g/dL (11.7-13.8); Immature Granulocyte Absolute 0.11 K/mm3 (0.00-0.00); Immature Granulocyte Percent A 1.8 % (0.0-0.0); Lymphocytes Absolute Auto 0.74 K/mm3 (1.10-4.50); Lymphocytes Percent Auto 11.8 % (18.0-42.0); Mean Corpuscular Hemoglobin 26.3 pg (27.0-31.0); Mean Platelet Volume 10.4 fl (9.2-11.8); Monocytes Absolute Auto 0.52 K/mm3 (0.10-0.90); Monocytes Percent Auto 8.3 % (2.0-11.0); Neutrophils Absolute Auto 4.9 K/mm3 (1.7-7.2); Neutrophils Percent Auto 77.6 % (50.0-70.0); Platelet Count Result 149 K/mm3 (150-420); Red Blood Count 3.31 M/mm3 (4.20-5.40); Red Cell Distribution Width 16.9 % (11.6-14.4); White Blood Count 6.3 K/mm3 (4.8-10.8)
[2020-11-21 06:33] LABS: Blood Urea Nitrogen 12 mg/dL (7-18); Chloride 105 mmol/L (98-108); Estimated CRCL calculation 95 ml/min; Estimated Glomerular Filt Rate > 60; Glucose 92 mg/dL (70-99); Osmolality Calculated 307 mOsm/kg (285-295); Potassium 3.9 mmol/L (3.5-5.1); Sodium 149 mmol/L (136-145)
[2020-11-21 06:40] LABS: Carbon Dioxide > 45 mmol/L (21-32)
[2020-11-21 08:14] LABS: Occult Blood Negative (Negative)
[2020-11-21] MEDS: SODIUM CHLORIDE 0.9% IV 1,000 ML 75 ML IV CONT (09:01)
[2020-11-21] MEDS: POTASSIUM CHLORIDE 10 MEQ TABLET PO (09:18)
[2020-11-21] MEDS: LEVOTHYROXINE SODIUM 25 MCG TABLET PO (09:18)
[2020-11-21] MEDS: FERROUS SULFATE 324 MG TABLET PO (09:18)
[2020-11-21] MEDS: MONTELUKAST SODIUM 10 MG TABLET PO (09:18)
[2020-11-21] MEDS: ASCORBIC ACID 500 MG TABLET PO (09:18)
[2020-11-21] MEDS: FUROSEMIDE 20 MG TABLET PO (09:18)
--- NOTE | 2020-11-21 09:24 | PC.NURSE ---
Awake, sitting on edge of bed eating breakfast, oriented to person and place
--- NOTE | 2020-11-21 09:31 | PC.NURSE ---
Woke to take meds, ate a little breakfast, lay back down, hospitalist at the bedside
--- NOTE | 2020-11-21 09:32 | PC.NURSE ---
refused inhaler at this time,
[2020-11-21 09:35] LABS: Lactic Acid Reflex 0.7 mmol/L (0.4-2.0)
[2020-11-21 09:54] LABS: NT Pro B Type Natriuretic Pept 628 pg/mL (0-450)
--- NOTE | 2020-11-21 09:55 | PM.IMHP ---
H&P: HPI History of Present Illness Date/Time: 11/21/20 09:55 patient 80-year-old female that presented to emergency department with altered mental status. Patient has a past medical history of, COPD, aortic stenosis, cardiomyopathy, GERD, nicotine dependence, dizziness, dyspnea, elevated troponin, hypertension, pulmonary hypertension, pericardial effusion, pleural effusion, and chronic use of supplementary oxygen. Patient is a poor historian she notes that she did not fall she states that she was dizzy and sat on the floor when her neighbor found her. She recently told me that she had been dizzy for couple of days and then later changed it and said it was just that one time. Patient WBC 4.8 hemoglobin 6.2 hematocrit 23.6 platelets 195, D-dimer 3.48, sodium 150, potassium 3.7, BUN 12, creatinine 0.45, glucose 200, lactic acid 3.7, liver function test within normal limit, troponin 59.5, BNP 418, TSH 4.99, urine positive for protein glucose ketones blood bili urobilinogen leukocytes and bacteria toxicology negative occult blood negative, chest x-ray pneumonia with moderate to large pleural effusion. Patient does complain of shortness of breath. The patient denies SOB, CP, palpitation, extremity numbness, lightheadedness, dizziness, constipation, diarrhea, chills, or fever. Chief Complaint: AMS Review of Systems Review of Systems: A 14 organ system Review of Systems was performed and pertinent positives included in the HPI, otherwise remaining ROS is negative. [facility] Past Medical History Medical History Abdominal pain in female patient (~02/28/19) Acute exacerbation of chronic obstructive pulmonary disease Acute exacerbation of chronic obstructive pulmonary disease (COPD) Aortic stenosis Cardiomegaly Chronic GERD Cigarette nicotine dependence Community acquired pneumonia COPD (chronic obstructive pulmonary disease) Dilatation of pulmonic artery Dizziness Dyspnea Elevated troponin HTN (hypertension) Left groin pain (~02/28/19) Medical non-compliance Moderate to severe pulmonary hypertension (~2018) Nicotine dependence Pericardial effusion Pleural effusion Requires supplemental oxygen Shortness of breath Smoker Spondylosis of thoracolumbar spine Suspected COVID-19 virus infection TMJ (temporomandibular joint disorder) Trichomonal infection (~2018) Urogenital infection by trichomonas vaginalis (~02/08/19) Surgical History Surgical History H/O tubal ligation History of appendectomy History of tonsillectomy Hx of cholecystectomy Family History Family History Father Acute myocardial infarction Mother Acute myocardial infarction Social History Social History Social History: Signed a DNR. Does not want advanced interventions done. Lives at home alone. No family support or assistance. Lee helps her with rides. No cigarettes for over a week. Smoking packs per day: 0.5 Smoking cigarettes per day: 10.0 Years smoked: 55 Smoking pack-years: 27.50 Smoking status: Current every day smoker Tobacco type: cigarettes Second hand tobacco smoke exposure: No Additional smoking assessment comments: states has not been smoking much lately due to shortness of breath Alcohol intake: unknown Substance use: unknown Substance use type: unknown Gender identity (if verbalized by the patient): Female Spiritual care concerns: No Agree to blood products: Yes Meds Home Medications and Allergies Home Medications Medication Instructions Recorded Confirmed Type ascorbic acid (vitamin C) 500 mg 500 mg PO DAILY 30 Days #30 tablet 03/30/20 11/20/20 Rx tablet ferrous sulfate 325 mg (65 mg 324 mg PO DAILY 30 Days #30 tablet 03/30/20 11/20/20 Rx iron) tablet furosemide 20 mg tablet 20 m
[2020-11-21] MEDS: methylPREDNISolone SOD SUCC 125 MG VIAL IV PUSH ×2 (13:07→21:36)
--- NOTE | 2020-11-21 14:12 | PC.NURSE ---
REsting in bed, on right side, oxygen on at 5 L NC
--- NOTE | 2020-11-21 15:06 | PC.NURSE ---
incontinent of large loose green stool, up to chair, bed changed, remains on 5 L NC, returned to bed with assist of 1, leroy patent and draining, side railsup and call light in reach of patient
[2020-11-21] MEDS: FUROSEMIDE INJ 40 MG/4 ML VIAL IV PUSH (16:51)
--- NOTE | 2020-11-21 17:50 | PC.NURSE ---
Patient yelled out for help. When nurse arrived patient had both of her legs out of bed. Patient confused and couldn't explain why her legs were out of bed. Nurse assisted patient back into bed and placed pulse ox on finger. SPO2 was at 52% with NC in nose. Nurse found that somehow patient had pulled on the tubing and pulled the NC tubing off of the O2 humidifier. Nurse placed the NC tubing back on the humidifier and patient's SPO2 instantly chasity back up to 93%. No resp distress observed. HOB elevated.
--- NOTE | 2020-11-21 23:31 | PC.NURSE ---
Patient calling out. SPO2 at 66%. Doctor notified of change of condition. Placed on nonrebreather and sats up to 98%
--- NOTE | 2020-11-22 00:14 | PC.NURSE ---
patient yelled out for help, patient stated oxygen was not working, pulse ox read 66%, patient was on 5 liters nasal cannula, patient placed on 100% non rebreather mask and recovered quickly at 100%. patient talking to nurse and trying to change channels on remote control. patient disoriented to time and place. patient reoriented to time and place. will continue to monitor.
[2020-11-22 05:14] VITALS: O2SAT 96
[2020-11-22 05:40] LABS: Hematocrit 28.5 % (35.0-42.0); Hemoglobin 8.1 g/dL (11.7-13.8); Immature Platelet Fraction Pct 7.4 % (1.0-7.0); Mean Corpuscular HGB Conc 28.4 g/dL (32.0-36.0); Mean Corpuscular Hemoglobin 26.7 pg (27.0-31.0); Mean Corpuscular Volume 94.1 fL (78.0-102.0); Mean Platelet Volume 10.9 fl (9.2-11.8); Platelet Count Result 129 K/mm3 (150-420); Red Blood Count 3.03 M/mm3 (4.20-5.40); Red Cell Distribution Width 15.9 % (11.6-14.4); White Blood Count 4.8 K/mm3 (4.8-10.8)
[2020-11-22 05:54] LABS: Alanine Aminotransferase 21 U/L (14-59); Albumin Level 3.1 g/dL (3.4-5.0); Alkaline Phosphatase 63 U/L (46-116); Aspartate Amino Transferase 12 U/L (15-37); Bilirubin,Total 0.3 mg/dL (0.00-1.00); Blood Urea Nitrogen 13 mg/dL (7-18); Calcium 7.8 mg/dL (8.5-10.1); Chloride 102 mmol/L (98-108); Estimated CRCL calculation 84 ml/min; Estimated Glomerular Filt Rate > 60; Glucose 131 mg/dL (70-99); Magnesium 1.6 mg/dL (1.8-2.4); Osmolality Calculated 300 mOsm/kg (285-295); Potassium 4.2 mmol/L (3.5-5.1); Sodium 144 mmol/L (136-145); Total Protein 6.1 g/dL (6.4-8.2)
[2020-11-22 06:01] LABS: Lactic Acid Reflex 0.9 mmol/L (0.4-2.0)
[2020-11-22 06:05] LABS: Carbon Dioxide > 45 mmol/L (21-32)
[2020-11-22] MEDS: LEVOTHYROXINE SODIUM 25 MCG TABLET PO (07:31)
[2020-11-22] MEDS: methylPREDNISolone SOD SUCC 125 MG VIAL IV PUSH ×2 (07:31→13:42)
[2020-11-22 07:35] VITALS: BP 137/59; PULSE 76; RESP 20; TEMP 37; O2SAT 100
--- NOTE | 2020-11-22 07:52 | P.PN_ITS ---
Progress Note: A&P Assessment and Plan (1) Anemia, iron deficiency: Code(s): D50.9 - Iron deficiency anemia, unspecified Status: Acute Assessment and Plan: * Patient hemoglobin 6.2 on admission 2 units of PRBC infused currently 8.7>8.1 * Possibly secondary to iron deficiency versus hemorrhage more than likely iron deficiency anemia no active bleeding noted * We will continue to monitor * No active bleeding noted * Occult blood is negative * Transfused with a hemoglobin less than 7 (2) COPD (chronic obstructive pulmonary disease): Code(s): J44.9 - Chronic obstructive pulmonary disease, unspecified Status: Acute Assessment and Plan: * Continue his inhalers and nebulizers (3) Requires supplemental oxygen: Code(s): Z99.81 - Dependence on supplemental oxygen Status: Acute Assessment and Plan: * Continue use patient currently on a nonrebreather (4) Moderate to severe pulmonary hypertension: Onset Date: ~2018 Code(s): I27.20 - Pulmonary hypertension, unspecified Status: Acute Assessment and Plan: * Stable * Vital signs as ordered * Will prescribe medication if needed (5) Nicotine dependence: Code(s): F17.200 - Nicotine dependence, unspecified, uncomplicated Status: Acute Assessment and Plan: * Educated on cessation * Nicotine patch ordered (6) Hypothyroidism: Code(s): E03.9 - Hypothyroidism, unspecified Status: Acute Assessment and Plan: * Elevated TSH4.99 * Patient known to be noncompliant * Will continue home medication (7) Congestive heart failure: Onset Date: ~2018 Code(s): I50.9 - Heart failure, unspecified Status: Acute Assessment and Plan: * [id number] * Will complete daily weights * Will complete I's and O's * Patient receiving Lasix 40 mg twice daily (8) Pleural effusion: Code(s): J90 - Pleural effusion, not elsewhere classified Status: Acute Assessment and Plan: * Chest x-ray indicates moderate to large pleural effusion * Will start Lasix with steroids and antibiotics if it does not resolve will order for thoracentesis (9) PNA (pneumonia): Code(s): J18.9 - Pneumonia, unspecified organism Status: Acute Assessment and Plan: * Chest x-ray indicate worsening pneumonia * Continue Rocephin and azithromycin * WBCs within normal limit * Lactic acid 3.7>0.7 * Blood culture pending (10) Elevated d-dimer: Code(s): R79.89 - Other specified abnormal findings of blood chemistry Status: Acute Assessment and Plan: * D-dimer 3.48 * CTA pending (11) Encephalopathy: Code(s): G93.40 - Encephalopathy, unspecified Status: Acute Assessment and Plan: * Improved * Possibly secondary to infection versus anemia * PRBCs infused 2 units * Patient received Rocephin and azithromycin for pneumonia * Neurochecks ordered Subjective Date/time seen: 11/22/20 07:52 patient appears to be a little more lethargic from previous visits. She is able to follow commands and answer questions. She is requiring a nonrebreather which is different from yesterday she only require a nasal cannula. Patient denies any shortness of breath but once again she does experience confusions on occasions. The patient denies SOB, CP, palpitation, extremity numbness, lightheadedness, dizziness, constipation, diarrhea, chills, or fever. Review of Systems Review of Systems: A 14 organ system Review of
--- NOTE | 2020-11-22 07:52 | WPDPN ---
Progress Note: A&P Assessment and Plan (1) Anemia, iron deficiency: Code(s): D50.9 - Iron deficiency anemia, unspecified Status: Acute Assessment and Plan: Patient hemoglobin 6.2 on admission 2 units of PRBC infused currently 8.7>8.1 Possibly secondary to iron deficiency versus hemorrhage more than likely iron deficiency anemia no active bleeding noted We will continue to monitor No active bleeding noted Occult blood is negative Transfused with a hemoglobin less than 7 (2) COPD (chronic obstructive pulmonary disease): Code(s): J44.9 - Chronic obstructive pulmonary disease, unspecified Status: Acute Assessment and Plan: Continue his inhalers and nebulizers (3) Requires supplemental oxygen: Code(s): Z99.81 - Dependence on supplemental oxygen Status: Acute Assessment and Plan: Continue use patient currently on a nonrebreather (4) Moderate to severe pulmonary hypertension: Onset Date: ~2018 Code(s): I27.20 - Pulmonary hypertension, unspecified Status: Acute Assessment and Plan: Stable Vital signs as ordered Will prescribe medication if needed (5) Nicotine dependence: Code(s): F17.200 - Nicotine dependence, unspecified, uncomplicated Status: Acute Assessment and Plan: Educated on cessation Nicotine patch ordered (6) Hypothyroidism: Code(s): E03.9 - Hypothyroidism, unspecified Status: Acute Assessment and Plan: Elevated TSH4.99 Patient known to be noncompliant Will continue home medication (7) Congestive heart failure: Onset Date: ~2018 Code(s): I50.9 - Heart failure, unspecified Status: Acute Assessment and Plan: [id number] Will complete daily weights Will complete I's and O's Patient receiving Lasix 40 mg twice daily (8) Pleural effusion: Code(s): J90 - Pleural effusion, not elsewhere classified Status: Acute Assessment and Plan: Chest x-ray indicates moderate to large pleural effusion Will start Lasix with steroids and antibiotics if it does not resolve will order for thoracentesis (9) PNA (pneumonia): Code(s): J18.9 - Pneumonia, unspecified organism Status: Acute Assessment and Plan: Chest x-ray indicate worsening pneumonia Continue Rocephin and azithromycin WBCs within normal limit Lactic acid 3.7>0.7 Blood culture pending (10) Elevated d-dimer: Code(s): R79.89 - Other specified abnormal findings of blood chemistry Status: Acute Assessment and Plan: D-dimer 3.48 CTA pending (11) Encephalopathy: Code(s): G93.40 - Encephalopathy, unspecified Status: Acute Assessment and Plan: Improved Possibly secondary to infection versus anemia PRBCs infused 2 units Patient received Rocephin and azithromycin for pneumonia Neurochecks ordered Subjective Date/time seen: 11/22/20 07:52 patient appears to be a little more lethargic from previous visits. She is able to follow commands and answer questions. She is requiring a nonrebreather which is different from yesterday she only require a nasal cannula. Patient denies any shortness of breath but once again she does experience confusions on occasions. The patient denies SOB, CP, palpitation, extremity numbness, lightheadedness, dizziness, constipation, diarrhea, chills, or fever. Review of Systems Review of Systems: A 14 organ system Review of Systems was performed and pertinent positives included in the HPI, otherwise remaining ROS is negative. Exam Narrative: GENERAL: Elderly female, in no apparent distress. HEAD: normocephalic, atraumatic. EYES: PERRL. Sclera clear/white. Vision is grossly intact. EARS: External ears normal, auditory canals clear and without drainage, TMs normal without perforation. Hearing grossly intact. NOSE: External nose normal with no obvious nasal discharge, nares without redness, n
[2020-11-22] MEDS: MAGNESIUM SULF 2 GM/WATER 50ML 2 GM/50 ML BAG IVPB (08:03)
[2020-11-22 08:05] VITALS: PULSE 78; RESP 20; O2SAT 96
[2020-11-22] MEDS: POTASSIUM CHLORIDE 10 MEQ TABLET PO (09:10)
[2020-11-22] MEDS: FERROUS SULFATE 324 MG TABLET PO (09:10)
[2020-11-22] MEDS: ASCORBIC ACID 500 MG TABLET PO (09:10)
[2020-11-22] MEDS: MONTELUKAST SODIUM 10 MG TABLET PO (09:10)
[2020-11-22] MEDS: FUROSEMIDE INJ 40 MG/4 ML VIAL IV PUSH (09:11)
[2020-11-22] MEDS: NICOTINE (*PBKC) 21 MG PATCH 1 PATCH TRANSDERM (09:11)
[2020-11-22 09:40] LABS: NT Pro B Type Natriuretic Pept 2798 pg/mL (0-450)
[2020-11-22 12:00] VITALS: BP 135/54; PULSE 95; RESP 24; TEMP 36.8; O2SAT 96
[2020-11-22] MEDS: LORazepam INJ (*CRX) 2 MG/ML VIAL 0.5 MG IV PUSH (13:38)
--- NOTE | 2020-11-22 14:24 | PM.EVENT ---
Event Note Event Note Event Note: Spoke with patient's POA Oz, updated him on patient's new condition for is having a pulmonary embolism in a pleural effusion. Oz has opted out of anticoagulation therapy due to her low RBCs he also notes that it would not improve her quality of life. He did agree to do the paracentesis for her moderate to large pleural effusion which will be scheduled for tomorrow.
[2020-11-22 15:30] VITALS: BP 126/103; PULSE 87; RESP 22; TEMP 36.7; O2SAT 96
--- NOTE | 2020-11-22 16:55 | PC.NURSE ---
This nurse entered room to assist setting up patients dinner tray. Patient found unresponsive. Unable to find pulse radial/carotid pulse. 2 agonal breaths noted. No further breathes noted. No heart beat found listening with stethoscope apically. Charge nurse notified and confirmed lack of pulse and breathing. Patient DNR. Charge nurse notified
--- NOTE | 2020-11-22 17:40 | PC.NURSE ---
Nasal canula removed, IV site discontinued, dressing applied. Cooney cath discontinued. Patient given sponge bath with bath wipes. Dentures removed and placed in denture cup. Mouth care provided. Clean gown applied to patient, clean blanket applied over patient.
--- NOTE | 2020-11-22 18:00 | PC.NURSE ---
1655 Patient . 1700 Charge nurse notified, 2nd person to verify no resp, no pulse, eyes fixed. 1715 Dr. Brennan notified. 1730 Oz Snyderon, sibling, notified of . 1735 Dr. Brennan here to see patient and pronounce . 1740 Dougie Powell, grade foreman, notified of . [employer] stated we may release the body to home. 1745 [facility] notified of . Kamran from [facility] stated patient did not qualify for donation and may be released to home. 1755 [place], [place], notified of .
--- NOTE | 2020-11-22 18:23 | PM.EVENT ---
Event Note Event Note Event Note: Charge nurse called me at 17:10 this evening to tell me that Ms. Mora was found unconscious and pulseless at 16:55 today. nurse states that the patient had to agonal breaths but no pulse and was unresponsive. Exam reveals no pupil response, pulse or respiratory effort. Declared . Nursing staff notify family.
--- NOTE | 2020-11-22 18:47 | PC.NURSE ---
Nicolle from [facility] here to pick and shovel man patient's remains and belongs.
--- NOTE | 2020-11-23 06:45 | P.DS_ITS ---
DS: Admitting Diagnosis Admitting Diagnosis Pneumonia, PE, anemia DS: Discharge Diagnosis Discharge Diagnosis (1) Anemia, iron deficiency: Code(s): D50.9 - Iron deficiency anemia, unspecified Status: Acute Assessment and Plan: * Patient hemoglobin 6.2 on admission 2 units of PRBC infused currently 8.7>8.1 * Possibly secondary to iron deficiency versus hemorrhage more than likely iron deficiency anemia no active bleeding noted * We will continue to monitor * No active bleeding noted * Occult blood is negative * Transfused with a hemoglobin less than 7 * Patient (2) COPD (chronic obstructive pulmonary disease): Code(s): J44.9 - Chronic obstructive pulmonary disease, unspecified Status: Acute Assessment and Plan: * Continue his inhalers and nebulizers Patient (3) Requires supplemental oxygen: Code(s): Z99.81 - Dependence on supplemental oxygen Status: Acute Assessment and Plan: * Continue use patient currently on a nonrebreather * Patient (4) Moderate to severe pulmonary hypertension: Onset Date: Code(s): I27.20 - Pulmonary hypertension, unspecified Status: Acute Assessment and Plan: * Stable * Vital signs as ordered * Will prescribe medication if needed * Patient (5) Nicotine dependence: Code(s): F17.200 - Nicotine dependence, unspecified, uncomplicated Status: Acute Assessment and Plan: * Educated on cessation * Nicotine patch ordered * Patient (6) Hypothyroidism: Code(s): E03.9 - Hypothyroidism, unspecified Status: Acute Assessment and Plan: * Elevated TSH4.99 * Patient known to be noncompliant * Will continue home medication * Patient (7) Congestive heart failure: Onset Date: Code(s): I50.9 - Heart failure, unspecified Status: Acute Assessment and Plan: * [id number] * Will complete daily weights * Will complete I's and O's * Patient receiving Lasix 40 mg twice daily * Patient (8) Pleural effusion: Code(s): J90 - Pleural effusion, not elsewhere classified Status: Acute Assessment and Plan: * Chest x-ray indicates moderate to large pleural effusion * Will start Lasix with steroids and antibiotics if it does not resolve will order for thoracentesis * Patient (9) PNA (pneumonia): Code(s): J18.9 - Pneumonia, unspecified organism Status: Acute Assessment and Plan: * Chest x-ray indicate worsening pneumonia * Continue Rocephin and azithromycin * WBCs within normal limit * Lactic acid 3.7>0.7 * Blood culture pending * Patient (10) Elevated d-dimer: Code(s): R79.89 - Other specified abnormal findings of blood chemistry Status: Acute Assessment and Plan: * D-dimer 3.48 * CTA pending * Patient (11) Encephalopathy: Code(s): G93.40 - Encephalopathy, unspecified Status: Acute Assessment and Plan: * Improved * Possibly secondary to infection versus anemia * PRBCs infused 2 units * Patient received Rocephin and azithromycin for pneumonia * Neurochecks ordered * Patient DS: Summary Hospital Course Reason for hospitalization: [facility] Hospital Course: patient 80-year-old female that presented to emergency department with altered mental status. Patient has a past medical history of, COPD, aortic stenosis, cardiomyopathy, G
--- NOTE | 2020-11-23 06:45 | PM.DS ---
DS: Admitting Diagnosis Admitting Diagnosis Pneumonia, PE, anemia DS: Discharge Diagnosis Discharge Diagnosis (1) Anemia, iron deficiency: Code(s): D50.9 - Iron deficiency anemia, unspecified Status: Acute Assessment and Plan: Patient hemoglobin 6.2 on admission 2 units of PRBC infused currently 8.7>8.1 Possibly secondary to iron deficiency versus hemorrhage more than likely iron deficiency anemia no active bleeding noted We will continue to monitor No active bleeding noted Occult blood is negative Transfused with a hemoglobin less than 7 Patient (2) COPD (chronic obstructive pulmonary disease): Code(s): J44.9 - Chronic obstructive pulmonary disease, unspecified Status: Acute Assessment and Plan: Continue his inhalers and nebulizers Patient (3) Requires supplemental oxygen: Code(s): Z99.81 - Dependence on supplemental oxygen Status: Acute Assessment and Plan: Continue use patient currently on a nonrebreather Patient (4) Moderate to severe pulmonary hypertension: Onset Date: ~2018 Code(s): I27.20 - Pulmonary hypertension, unspecified Status: Acute Assessment and Plan: Stable Vital signs as ordered Will prescribe medication if needed Patient (5) Nicotine dependence: Code(s): F17.200 - Nicotine dependence, unspecified, uncomplicated Status: Acute Assessment and Plan: Educated on cessation Nicotine patch ordered Patient (6) Hypothyroidism: Code(s): E03.9 - Hypothyroidism, unspecified Status: Acute Assessment and Plan: Elevated TSH4.99 Patient known to be noncompliant Will continue home medication Patient (7) Congestive heart failure: Onset Date: ~2018 Code(s): I50.9 - Heart failure, unspecified Status: Acute Assessment and Plan: [id number] Will complete daily weights Will complete I's and O's Patient receiving Lasix 40 mg twice daily Patient (8) Pleural effusion: Code(s): J90 - Pleural effusion, not elsewhere classified Status: Acute Assessment and Plan: Chest x-ray indicates moderate to large pleural effusion Will start Lasix with steroids and antibiotics if it does not resolve will order for thoracentesis Patient (9) PNA (pneumonia): Code(s): J18.9 - Pneumonia, unspecified organism Status: Acute Assessment and Plan: Chest x-ray indicate worsening pneumonia Continue Rocephin and azithromycin WBCs within normal limit Lactic acid 3.7>0.7 Blood culture pending Patient (10) Elevated d-dimer: Code(s): R79.89 - Other specified abnormal findings of blood chemistry Status: Acute Assessment and Plan: D-dimer 3.48 CTA pending Patient (11) Encephalopathy: Code(s): G93.40 - Encephalopathy, unspecified Status: Acute Assessment and Plan: Improved Possibly secondary to infection versus anemia PRBCs infused 2 units Patient received Rocephin and azithromycin for pneumonia Neurochecks ordered Patient DS: Summary Hospital Course Reason for hospitalization: [facility] Hospital Course: patient 80-year-old female that presented to emergency department with altered mental status. Patient has a past medical history of, COPD, aortic stenosis, cardiomyopathy, GERD, nicotine dependence, dizziness, dyspnea, elevated troponin, hypertension, pulmonary hypertension, pericardial effusion, pleural effusion, and chronic use of supplementary oxygen. Patient is a poor historian she notes that she did not fall she states that she was dizzy and sat on the floor when her neighbor found her. She recently told me that she had been dizzy for couple of days and then later changed it and said it was just that one time. Patient was found to have a PEA notify her brother who is her POA h
== END 2020-11-22 18:45 | disposition expired | DRG 175 ==
LOC: CHSED 16:40 → CHS2ND 20:01
PROVIDERS: Nurse Practitioner; Admitting Provider Family Medicine; Emergency Provider Family Medicine; PCP Nurse Practitioner Family; Visit Provider Family Medicine
DX: D64.9 Anemia, unspecified (principal); I26.99 Other pulmonary embolism without acute cor pulmonale; J18.9 Pneumonia, unspecified organism; J90 Pleural effusion, not elsewhere classified; G93.40 Encephalopathy, unspecified; J98.11 Atelectasis; I42.9 Cardiomyopathy, unspecified; D50.9 Iron deficiency anemia, unspecified; M47.815 Spondylosis without myelopathy or radiculopathy, thoracolumbar region; M26.609 Unspecified temporomandibular joint disorder, unspecified side; I11.0 Hypertensive heart disease with heart failure; Z90.49 Acquired absence of other specified parts of digestive tract; I50.9 Heart failure, unspecified; I35.0 Nonrheumatic aortic (valve) stenosis; I27.20 Pulmonary hypertension, unspecified; E03.9 Hypothyroidism, unspecified; J44.9 Chronic obstructive pulmonary disease, unspecified; K21.9 Gastro-esophageal reflux disease without esophagitis; F17.210 Nicotine dependence, cigarettes, uncomplicated; Z99.81 Dependence on supplemental oxygen
CPT/HCPCS: 36415; 36430; 70450; 71045; 71275; 80048; 80053; 80307; 81001; 82272; 82550; 83605; 83735; 83880; 84443; 84484; 85025; 85027; 85055; 85060; 85380; 85610; 86850; 86900; 86901; 86920; 87040; 93005; 99285; A9270; J0456; J0696; J1940; J2060; J2930; J3475; J7030; P9016; Q9967